=== PATIENT | male | born 1970 ===

== ENCOUNTER 2020-10-14 19:46 | Inpatient (IN) | payer BC ==
--- NOTE | 2020-10-14 19:59 | EDM.PDOC ---
ED HPI GENERAL MEDICAL PROBLEM - General Chief Complaint: General Stated Complaint: weak cough sob dizzy Time Seen by Provider: 10/14/20 19:57 - History of Present Illness INITIAL COMMENTS - FREE TEXT/NARRATIVE: 50-year-old male presents the emergency room with shortness of breath and cough. Patient states he has been coughing and short of breath for about a week. He cannot really recall when it actually got worse perhaps a few days ago but it has not been a significant change. Is not aware of any fevers. Patient is not aware of any Covid exposures she has had some sick coworkers but none of them were tested. Patient denies any nausea vomiting and he is hungry. He has an intermittent cough mostly dry nonproductive. He was seen at the walk-in clinic today and they could not get his O2 saturation to 90%. - Related Data Allergies Allergy/AdvReac Type Severity Reaction Status Date / Time No Known Allergies Allergy Verified 10/14/20 20:19 Home Meds: Home Meds . [No Known Home Meds] 10/14/20 [History] ED ROS GENERAL - Review of Systems Review Of Systems: See Below Constitutional: Reports: No Symptoms HEENT: Reports: No Symptoms Respiratory: Reports: Shortness of Breath, Cough. Denies: Wheezing Cardiovascular: Reports: No Symptoms. Denies: Chest Pain Endocrine: Reports: No Symptoms GI/Abdominal: Reports: No Symptoms : Reports: No Symptoms Musculoskeletal: Reports: No Symptoms Skin: Reports: No Symptoms Neurological: Reports: No Symptoms Psychiatric: Reports: No Symptoms Hematologic/Lymphatic: Reports: No Symptoms Immunologic: Reports: No Symptoms ED EXAM, GENERAL - Physical Exam Exam: See Below Exam Limited By: No Limitations General Appearance: Alert, No Apparent Distress Eye Exam: Bilateral Eye: Normal Inspection Ears: Normal External Exam, Normal Canal, Hearing Grossly Normal, Normal TMs Nose: Normal Inspection, Normal Mucosa, No Blood Throat/Mouth: Normal Inspection, Normal Lips, Normal Teeth, Normal Gums, Normal Oropharynx, Normal Voice, No Airway Compromise Head: Atraumatic, Normocephalic Neck: Normal Inspection, Supple, Non-Tender, Full Range of Motion. No: Lymphadenopathy (L), Lymphadenopathy (R) Respiratory/Chest: No Respiratory Distress, Lungs Clear, Normal Breath Sounds Cardiovascular: Regular Rate, Rhythm, No Edema, No Murmur GI/Abdominal: Normal Bowel Sounds, Soft, Non-Tender Back Exam: Normal Inspection. No: CVA Tenderness (L), CVA Tenderness (R) #1 Interpretation EKG Date: 10/14/20 Rhythm: Other (Sinus tachycardia) Rate (Beats/Min): 111 [place]: Normal P-Wave: Present QRS: Normal ST-T: Other (Minimal diet nondiagnostic changes most likely due to the rapid heart rate) QT: Normal Comparison: NA - No Prior EKG EKG Interpretation Comments: Abnormal EKG Course - Vital Signs Last Recorded V/S: Last Vital Signs Temp 38.2 C H 10/14/20 20:14 Pulse 117 H 10/14/20 20:14 Resp 22 H 10/14/20 20:14 BP 136/90 10/14/20 20:14 Pulse Ox 89 L 10/14/20 20:14 - Orders/Labs/Meds Orders: Active Orders 24 hr Category Date Time Status Admission Status [Patient Status] [ADT] Routine ADT 10/14/20 21:55 Active EKG Documentation Completion [RC] STAT Care 10/14/20 20:27 Active CULTURE BLOOD [BC] Stat Lab 10/14/20 20:38 Received CULTURE BLOOD [BC] Stat Lab 10/14/20 20:48 Received HEPATIC FUNCTION PANEL,HFP [CHEM] DAILY Lab 10/15/20 22:00 Ordered HEPATIC FUNCTION PANEL,HFP [CHEM] DAILY Lab 10/16/20 22:00 Ordered HEPATIC FUNCTION PANEL,HFP [CHEM] DAILY Lab 10/17/20 22:00 Ordered HEPATIC FUNCTION PANEL,[facility] [CHEM] DAILY Lab 10/18/20 22:00 Ordered HEPATIC FUNCTION PANEL,HFP [CHEM] Stat Lab 10/14/20 21:54 Ordered Lactated Ringers [Ringers, Lactated] 1,000 ml Med 10/14/20 21:30 Active IV ASDIRECTED Blood Culture x2 Reflex Set [OM.PC] Stat Oth 10/14/20 20:18 Ordered Medication Orders Lactated Ringer's (Ringers, Lactated) 1,000 mls @ 75 mls/hr IV ASDIRECTED [facility] Labs: Laboratory Tests 10/14/20 10/14/20 10/14/20 Range/Units 20:02 20:10 20:10 WBC 7.74 (4.23-9.07) K/mm3 RBC 5.23 (4.63-6.08) M/mm3 Hgb 15.9 (13.7-17.5) gm/dl Hct 45.3 (40.1-51.0) % MCV 86.6 (79.0-92.2) fl MCH 30.4 (25.7-32.2) pg MCHC 35.1 (32.2-35.5) g/dl RDW Std Deviation 49.1 H (35.1-43.9) fL Plt Count 143 L (163-337) K/mm3 MPV 11.2 (9.4-12.3) fl Neutrophils % (Manual) 81 H (40-60) % Band Neutrophils % 1 (0-10) % Lymphocytes % (Manual) 10 L (20-40) % Atypical Lymphs % 1 % Monocytes % (Manual) 7 (2-10) % Eosinophils % (Manual) 0 L (0.8-7.0) % Basophils % (Manual) 0 L (0.2-1.2) Platelet Estimate Adequate RBC Morph Comment Normal D-Dimer, Quantitative (0.19-0.50) mg/L Sodium 138 (136-145) mEq/L Potassium 4.1 (3.5-5.1) mEq/L Chloride 101 (98-107) mEq/L Carbon Dioxide 24 (21-32) mEq/L Anion Gap 17.1 H (5-15) BUN 20 H (7-18) mg/dL Creatinine 1.1 (0.7-1.3) mg/dL Est Cr Clr Drug Dosing 90.14 mL/min Estimated GFR (MDRD) > 60 (>60) mL/min BUN/Creatinine Ratio 18.2 H (14-18) Glucose 135 H (70-99) mg/dL Lactic Acid (0.4-2.0) mmol/L Calcium 8.4 L (8.5-10.1) mg/dL Ferritin (26-388) ng/ml Total Bilirubin 0.7 (0.2-1.0) mg/dL AST 92 H (15-37) U/L ALT 75 H (16-63) U/L Alkaline Phosphatase 52 (46-116) U/L Troponin I (0.00-0.056) ng/mL C-Reactive Protein 6.2 H* (<1.0) mg/dL Total Protein 7.3 (6.4-8.2) g/dl Albumin 3.0 L (3.4-5.0) g/dl Globulin 4.3 gm/dL Albumin/Globulin Ratio 0.7 L (1-2) Influenza Type A RNA Negative (NEGATIVE) Influenza Type B RNA Negative (NEGATIVE) SARS-CoV-2 RNA (SHELIA) Positive H (NEGATIVE) 10/14/20 10/14/20 10/14/20 Range/Units 20:10 20:10 20:10 WBC (4.23-9.07) K/mm3 RBC (4.63-6.08) M/mm3 Hgb (13.7-17.5) gm/dl Hct (40.1-51.0) % MCV (79.0-92.2) fl MCH (25.7-32.2) pg MCHC (32.2-35.5) g/dl RDW Std Deviation (35.1-43.9) fL Plt Count (163-337) K/mm3 MPV (9.4-12.3) fl Neutrophils % (Manual) (40-60) % Band Neutrophils % (0-10) % Lymphocytes % (Manual) (20-40) % Atypical Lymphs % % Monocytes % (Manual) (2-10) % Eosinophils % (Manual) (0.8-7.0) % Basophils % (Manual) (0.2-1.2) Platelet Estimate RBC Morph Comment D-Dimer, Quantitative 0.50 (0.19-0.50) mg/L Sodium (136-145) mEq/L Potassium (3.5-5.1) mEq/L Chloride (98-107) mEq/L Carbon Dioxide (21-32) mEq/L Anion Gap (5-15) BUN (7-18) mg/dL Creatinine (0.7-1.3) mg/dL Est Cr Clr Drug Dosing mL/min Estimated GFR (MDRD) (>60) mL/min BUN/Creatinine Ratio (14-18) Glucose (70-99) mg/dL Lactic Acid (0.4-2.0) mmol/L Calcium (8.5-10.1) mg/dL Ferritin 2618 H (26-388) ng/ml Total Bilirubin (0.2-1.0) mg/dL AST (15-37) U/L ALT (16-63) U/L Alkaline Phosphatase (46-116) U/L Troponin I 0.017 (0.00-0.056) ng/mL C-Reactive Protein (<1.0) mg/dL Total Protein (6.4-8.2) g/dl Albumin (3.4-5.0) g/dl Globulin gm/dL Albumin/Globulin Ratio (1-2) Influenza Type A RNA (NEGATIVE) Influenza Type B RNA (NEGATIVE) SARS-CoV-2 RNA (SHELIA) (NEGATIVE) 10/14/20 Range/Units 20:38 WBC (4.23-9.07) K/mm3 RBC (4.63-6.08) M/mm3 Hgb (13.7-17.5) gm/dl Hct (40.1-51.0) % MCV (79.0-92.2) fl MCH (25.7-32.2) pg MCHC (32.2-35.5) g/dl RDW Std Deviation (35.1-43.9) fL Plt Count (163-337) K/mm3 MPV (9.4-12.3) fl Neutrophils % (Manual) (40-60) % Band Neutrophils % (0-10) % Lymphocytes % (Manual) (20-40) % Atypical Lymphs % % Monocytes % (Manual) (2-10) % Eosinophils % (Manual) (0.8-7.0) % Basophils % (Manual) (0.2-1.2) Platelet Estimate RBC Morph Comment D-Dimer, Quantitative (0.19-0.50) mg/L Sodium (136-145) mEq/L Potassium (3.5-5.1) mEq/L Chloride (98-107) mEq/L Carbon Dioxide (21-32) mEq/L Anion Gap (5-15) BUN (7-18) mg/dL Creatinine (0.7-1.3) mg/dL Est Cr Clr Drug Dosing mL/min Estimated GFR (MDRD) (>60) mL/min BUN/Creatinine Ratio (14-18) Glucose (70-99) mg/dL Lactic Acid 1.3 (0.4-2.0) mmol/L Calcium (8.5-10.1) mg/dL Ferritin (26-388) ng/ml Total Bilirubin (0.2-1.0) mg/dL AST (15-37) U/L ALT (16-63) U/L Alkaline Phosphatase (46-116) U/L Troponin I (0.00-0.056) ng/mL C-Reactive Protein (<1.0) mg/dL Total Protein (6.4-8.2) g/dl Albumin (3.4-5.0) g/dl Globulin gm/dL Albumin/Globulin Ratio (1-2) Influenza Type A RNA (NEGATIVE) Influenza Type B RNA (NEGATIVE) SARS-CoV-2 RNA (SHELIA) (NEGATIVE) Meds: Medications Generic Name Dose Route Start Last Admin Trade Name Freq PRN Reason Stop Dose Admin Lactated Ringer's 1,000 mls @ 75 mls/hr 10/14/20 21:30 Ringers, Lactated IV ASDIRECTED PAUL Discontinued Medications Generic Name Dose Route Start Last Admin Trade Name Freq PRN Reason Stop Dose Admin Dexamethasone 6 mg 10/14/20 21:53 Dexamethasone 4 Mg/Ml 5 Ml Mdv IV 10/14/20 21:54 ONETIME ONE Remdesivir 200 mg/ Sodium 250 mls @ 250 mls/hr 10/14/20 21:53 Chloride IV 10/14/20 21:54 ONETIME ONE - Re-Assessments/Exams Free Text/Narrative Re-Assessment/Exam: 10/14/20 21:56 I strongly suggested Covid pneumonia with peripheral infiltrates involving most the right lung field and the lower half of the left lung field. C-reactive protein is elevated D-dimer is normal white count is 7100 no bands relative lymphopenia. Patient is requiring oxygen he is now in nearly 4 L satting around 90% sometimes dropping to 88%. The patient should be placed inpatient. Case was discussed with Dr. Walls, our hospitalist who kindly accepts the patient patient be started on remdesivir and dexamethasone. He was started on a gentle dose of fluids as Covid was suspected even though he had some early indications that he might be septic lactic acid was normal but will be followed. Departure - Departure Time of Disposition: 21:47 Disposition: Admitted As Inpatient 68 Clinical Impression: Pneumonia due to COVID-19 virus - Discharge Information Referrals: PCP,None [Primary Care Provider] - Forms: ED Department Discharge Sepsis Event Note (ED) - Focused Exam Vital Signs: Vital Signs Temp Pulse Resp BP Pulse Ox 10/14/20 20:14 38.2 C H 117 H 22 H 136/90 89 L - My Orders Last 24 Hours: My Active Orders 10/14/20 20:18 Blood Culture x2 Reflex Set [OM.PC] Stat 10/14/20 20:27 EKG Documentation Completion [RC] STAT 10/14/20 20:38 CULTURE BLOOD [BC] Stat 10/14/20 20:48 CULTURE BLOOD [BC] Stat 10/14/20 21:30 Lactated Ringers [Ringers, Lactated] 1,000 ml IV ASDIRECTED 10/14/20 21:54 HEPATIC FUNCTION PANEL,HFP [CHEM] Stat 10/14/20 21:55 Admission Status [Patient Status] [ADT] Routine 10/15/20 22:00 HEPATIC FUNCTION PANEL,HFP [CHEM] DAILY 10/16/20 22:00 HEPATIC FUNCTION PANEL,HFP [CHEM] DAILY 10/17/20 22:00 HEPATIC FUNCTION PANEL,HFP [CHEM] DAILY 10/18/20 22:00 HEPATIC FUNCTION PANEL,HFP [CHEM] DAILY - Assessment/Plan Last 24 Hours: My Active Orders 10/14/20 20:18 Blood Culture x2 Reflex Set [OM.PC] Stat 10/14/20 20:27 EKG Documentation Completion [RC] STAT 10/14/20 20:38 CULTURE BLOOD [BC] Stat 10/14/20 20:48 CULTURE BLOOD [BC] Stat 10/14/20 21:30 Lactated Ringers [Ringers, Lactated] 1,000 ml IV ASDIRECTED 10/14/20 21:54 HEPATIC FUNCTION PANEL,HFP [CHEM] Stat 10/14/20 21:55 Admission Status [Patient Status] [ADT] Routine 10/15/20 22:00 HEPATIC FUNCTION PANEL,HFP [CHEM] DAILY 10/16/20 22:00 HEPATIC FUNCTION PANEL,HFP [CHEM] DAILY 10/17/20 22:00 HEPATIC FUNCTION PANEL,HFP [CHEM] DAILY 10/18/20 22:00 HEPATIC FUNCTION PANEL,HFP [CHEM] DAILY
[2020-10-14 21:00] LABS: CORONAVIRUS COVID-19 NAA POSITIVE (NEGATIVE)
--- NOTE | 2020-10-14 21:47 | CR ---
Chest: Upright view of the chest was obtained. Heart size and mediastinum are within normal limits. Diffuse increased density is seen within both sides of the chest. Bony structures are grossly intact. Impression: 1. Increased density on both sides of the chest. Please correlate if this represents pneumonia. Please rule out Covid disease. Diagnostic code #3
[2020-10-14] MEDS ORDERED: Dexamethasone 4 MG/ML 5 ML MDV IV ONE (21:53)
[2020-10-14] MEDS ORDERED: REMDESIVIR 200 MG in Sodium Chloride 0.9% 250 ML IV ONE (21:53)
[2020-10-14] MEDS: Lactated Ringers 1,000 ML IV SCH (22:14)
--- NOTE | 2020-10-15 06:43 | PCM.HP.2 ---
H&P History of Present Illness - General Date of Service: 10/15/20 Admit Problem/Dx: Admission Diagnosis/Problem Admission Diagnosis/Problem Hypoxia Source of Information: Patient History Limitations: Reports: No Limitations - History of Present Illness Initial Comments - Free Text/Narative: The patient is a 50-year-old gentleman who had presented to the emergency department out of concern for fatigue, hypoxia and weakness. The patient reports that he has had symptoms of shortness of breath, decreased appetite and fatigue for at least the past week. The patient was tested positive for COVID- 19 in the emergency department. The patient has denied any fever at home. No loss of sense of smell or taste. He currently lives with his daughter. She has not been sick. He has no coworkers that are sick. The patient initially seen at walk-in clinic where they were unable with oxygen to get his saturations to 90%. The patient reports that he has had a cough that has been nonproductive. He has denied any pain. The patient denies any tobacco use. Onset of Symptoms: Reports: Gradual Duration of Symptoms: Reports: Week(s): Location: Reports: Chest Quality: Reports: Ache Severity: Mild Improves with: Reports: Rest, Other (Oxygen) Worsens with: Reports: Breathing Context: Reports: Activity/Exercise. Denies: Sick Contact Associated Symptoms: Reports: Cough, Shortness of Breath, Weakness. Denies: cough w sputum - Related Data Allergies/Adverse Reactions: Allergies Allergy/AdvReac Type Severity Reaction Status Date / Time No Known Allergies Allergy Verified 10/14/20 23:52 Home Medications: Home Meds . [No Known Home Meds] 10/14/20 [History] Past Medical History - Past Health History Medical/Surgical History: Denies Medical/Surgical History HEENT History: Reports: None Cardiovascular History: Reports: None Respiratory History: Reports: None Gastrointestinal History: Reports: None Genitourinary History: Reports: Renal Calculus Musculoskeletal History: Reports: None Neurological History: Reports: None Psychiatric History: Reports: None Endocrine/Metabolic History: Reports: None Hematologic History: Reports: None Immunologic History: Reports: None Oncologic (Cancer) History: Reports: None Dermatologic History: Reports: None Social & Family History - Family History Family Medical History: No Pertinent Family History - Tobacco Use Tobacco Use Status *Q: Never Tobacco User Second Hand Smoke Exposure: No - Caffeine Use Caffeine Use: Reports: Soda - Recreational Drug Use Recreational Drug Use: No - Living Situation & Occupation Living situation: Reports: ( living with daughter) Occupation: Employed H&P Review of Systems - Review of Systems: Review Of Systems: See Below General: Reports: Malaise, Weakness HEENT: Reports: No Symptoms Pulmonary: Reports: Shortness of Breath, Cough. Denies: Sputum, Hemoptysis Cardiovascular: Reports: No Symptoms, Chest Pain Gastrointestinal: Reports: No Symptoms Genitourinary: Reports: No Symptoms Musculoskeletal: Reports: No Symptoms Skin: Reports: No Symptoms Psychiatric: Reports: No Symptoms Neurological: Reports: No Symptoms Hematologic/Lymphatic: Reports: No Symptoms Immunologic: Reports: No Symptoms Exam - Exam Exam: See Below - Vital Signs Vital Signs: Last Vital Signs Temp 38.3 C H 10/14/20 22:50 Pulse 107 H 10/14/20 22:50 Resp 26 H 10/14/20 22:50 BP 136/81 10/14/20 22:50 Pulse Ox 93 L 10/14/20 23:00 Weight: 120.701 kg - Exam Quality Assessment: Supplemental Oxygen, DVT Prophylaxis General: Alert, Oriented, Cooperative HEENT: Conjunctiva Clear, EACs Clear, EOMI, Hearing Intact, Mucosa Moist & [place], Nares Patent, PERRLA Neck: Supple, Trachea Midline Lungs: Decreased Breath Sounds, Crackles, Rales Cardiovascular: Regular Rate, Regular Rhythm GI/Abdominal Exam: Normal Bowel Sounds, Soft, Non-Tender, No Distention (Male) Exam: Deferred Rectal (Males) Exam: Deferred Back Exam: Normal Inspection, Full Range of Motion Extremities: Normal Inspection, No Pedal Edema Skin: Warm, Dry, Intact Neurological: Cranial Nerves Intact, Normal Gait, Normal Speech Neuro Extensive - Mental Status: Alert, Oriented x3 Neuro Extensive - Motor, Sensory, Reflexes: CN II-XII Intact, Normal Gait Psychiatric: Alert, Normal Affect - Patient Data Lab Results Last 24 hrs: Laboratory Results - last 24 hr 10/14/20 10/14/20 10/14/20 Range/Units 20:02 20:10 20:10 WBC 7.74 (4.23-9.07) K/mm3 RBC 5.23 (4.63-6.08) M/mm3 Hgb 15.9 (13.7-17.5) gm/dl Hct 45.3 (40.1-51.0) % MCV 86.6 (79.0-92.2) fl MCH 30.4 (25.7-32.2) pg MCHC 35.1 (32.2-35.5) g/dl RDW Std Deviation 49.1 H (35.1-43.9) fL Plt Count 143 L (163-337) K/mm3 MPV 11.2 (9.4-12.3) fl Neut % (Auto) (34.0-67.9) % Lymph % (Auto) (21.8-53.1) % [place] % (Auto) (5.3-12.2) % Eos % (Auto) (0.8-7.0) Baso % (Auto) (0.1-1.2) % Neut # (Auto) (1.78-5.38) K/mm3 Lymph # (Auto) (1.32-3.57) K/mm3 [place] # (Auto) (0.30-0.82) K/mm3 Eos # (Auto) (0.04-0.54) K/mm3 Baso # (Auto) (0.01-0.08) K/mm3 Neutrophils % (Manual) 81 H (40-60) % Band Neutrophils % 1 (0-10) % Lymphocytes % (Manual) 10 L (20-40) % Atypical Lymphs % 1 % Monocytes % (Manual) 7 (2-10) % Eosinophils % (Manual) 0 L (0.8-7.0) % Basophils % (Manual) 0 L (0.2-1.2) Platelet Estimate Adequate RBC Morph Comment Normal D-Dimer, Quantitative (0.19-0.50) mg/L Sodium 138 (136-145) mEq/L Potassium 4.1 (3.5-5.1) mEq/L Chloride 101 (98-107) mEq/L Carbon Dioxide 24 (21-32) mEq/L Anion Gap 17.1 H (5-15) BUN 20 H (7-18) mg/dL Creatinine 1.1 (0.7-1.3) mg/dL Est Cr Clr Drug Dosing 90.14 mL/min Estimated GFR (MDRD) > 60 (>60) mL/min BUN/Creatinine Ratio 18.2 H (14-18) Glucose 135 H (70-99) mg/dL Lactic Acid (0.4-2.0) mmol/L Calcium 8.4 L (8.5-10.1) mg/dL Ferritin (26-388) ng/ml Total Bilirubin 0.7 (0.2-1.0) mg/dL Direct Bilirubin (0.0-0.2) mg/dl Indirect Bilirubin AST 92 H (15-37) U/L ALT 75 H (16-63) U/L Alkaline Phosphatase 52 (46-116) U/L Troponin I (0.00-0.056) ng/mL C-Reactive Protein 6.2 H* (<1.0) mg/dL Total Protein 7.3 (6.4-8.2) g/dl Albumin 3.0 L (3.4-5.0) g/dl Globulin 4.3 gm/dL Albumin/Globulin Ratio 0.7 L (1-2) Influenza Type A RNA Negative (NEGATIVE) Influenza Type B RNA Negative (NEGATIVE) SARS-CoV-2 RNA (SHELIA) Positive H (NEGATIVE) 10/14/20 10/14/20 10/14/20 Range/Units 20:10 20:10 20:10 WBC (4.23-9.07) K/mm3 RBC (4.63-6.08) M/mm3 Hgb (13.7-17.5) gm/dl Hct (40.1-51.0) % MCV (79.0-92.2) fl MCH (25.7-32.2) pg MCHC (32.2-35.5) g/dl RDW Std Deviation (35.1-43.9) fL Plt Count (163-337) K/mm3 MPV (9.4-12.3) fl Neut % (Auto) (34.0-67.9) % Lymph % (Auto) (21.8-53.1) % [place] % (Auto) (5.3-12.2) % Eos % (Auto) (0.8-7.0) Baso % (Auto) (0.1-1.2) % Neut # (Auto) (1.78-5.38) K/mm3 Lymph # (Auto) (1.32-3.57) K/mm3 [place] # (Auto) (0.30-0.82) K/mm3 Eos # (Auto) (0.04-0.54) K/mm3 Baso # (Auto) (0.01-0.08) K/mm3 Neutrophils % (Manual) (40-60) % Band Neutrophils % (0-10) % Lymphocytes % (Manual) (20-40) % Atypical Lymphs % % Monocytes % (Manual) (2-10) % Eosinophils % (Manual) (0.8-7.0) % Basophils % (Manual) (0.2-1.2) Platelet Estimate RBC Morph Comment D-Dimer, Quantitative 0.50 (0.19-0.50) mg/L Sodium (136-145) mEq/L Potassium (3.5-5.1) mEq/L Chloride (98-107) mEq/L Carbon Dioxide (21-32) mEq/L Anion Gap (5-15) BUN (7-18) mg/dL Creatinine (0.7-1.3) mg/dL Est Cr Clr Drug Dosing mL/min Estimated GFR (MDRD) (>60) mL/min BUN/Creatinine Ratio (14-18) Glucose (70-99) mg/dL Lactic Acid (0.4-2.0) mmol/L Calcium (8.5-10.1) mg/dL Ferritin 2618 H (26-388) ng/ml Total Bilirubin (0.2-1.0) mg/dL Direct Bilirubin (0.0-0.2) mg/dl Indirect Bilirubin AST (15-37) U/L ALT (16-63) U/L Alkaline Phosphatase (46-116) U/L Troponin I 0.017 (0.00-0.056) ng/mL C-Reactive Protein (<1.0) mg/dL Total Protein (6.4-8.2) g/dl Albumin (3.4-5.0) g/dl Globulin gm/dL Albumin/Globulin Ratio (1-2) Influenza Type A RNA (NEGATIVE) Influenza Type B RNA (NEGATIVE) SARS-CoV-2 RNA (SHELIA) (NEGATIVE) 10/14/20 10/15/20 10/15/20 Range/Units 20:38 05:18 05:18 WBC 7.23 (4.23-9.07) K/mm3 RBC 5.03 (4.63-6.08) M/mm3 Hgb 15.1 (13.7-17.5) gm/dl Hct 44.5 (40.1-51.0) % MCV 88.5 (79.0-92.2) fl MCH 30.0 (25.7-32.2) pg MCHC 33.9 (32.2-35.5) g/dl RDW Std Deviation 50.9 H (35.1-43.9) fL Plt Count 141 L (163-337) K/mm3 MPV 11.1 (9.4-12.3) fl Neut % (Auto) 80.9 H (34.0-67.9) % Lymph % (Auto) 9.5 L (21.8-53.1) % [place] % (Auto) 9.4 (5.3-12.2) % Eos % (Auto) 0 L (0.8-7.0) Baso % (Auto) 0.1 (0.1-1.2) % Neut # (Auto) 5.84 H (1.78-5.38) K/mm3 Lymph # (Auto) 0.69 L (1.32-3.57) K/mm3 [place] # (Auto) 0.68 (0.30-0.82) K/mm3 Eos # (Auto) 0.00 L (0.04-0.54) K/mm3 Baso # (Auto) 0.01 (0.01-0.08) K/mm3 Neutrophils % (Manual) (40-60) % Band Neutrophils % (0-10) % Lymphocytes % (Manual) (20-40) % Atypical Lymphs % % Monocytes % (Manual) (2-10) % Eosinophils % (Manual) (0.8-7.0) % Basophils % (Manual) (0.2-1.2) Platelet Estimate RBC Morph Comment D-Dimer, Quantitative (0.19-0.50) mg/L Sodium 137 (136-145) mEq/L Potassium 4.9 (3.5-5.1) mEq/L Chloride 102 (98-107) mEq/L Carbon Dioxide 28 (21-32) mEq/L Anion Gap 11.9 (5-15) BUN 17 (7-18) mg/dL Creatinine 1.3 (0.7-1.3) mg/dL Est Cr Clr Drug Dosing 76.27 mL/min Estimated GFR (MDRD) 59 (>60) mL/min BUN/Creatinine Ratio 13.1 L (14-18) Glucose 156 H (70-99) mg/dL Lactic Acid 1.3 (0.4-2.0) mmol/L Calcium 8.3 L (8.5-10.1) mg/dL Ferritin (26-388) ng/ml Total Bilirubin 0.6 (0.2-1.0) mg/dL Direct Bilirubin 0.20 (0.0-0.2) mg/dl Indirect Bilirubin 0.40 AST 87 H (15-37) U/L ALT 74 H (16-63) U/L Alkaline Phosphatase 47 (46-116) U/L Troponin I (0.00-0.056) ng/mL C-Reactive Protein 7.2 H* (<1.0) mg/dL Total Protein 7.0 (6.4-8.2) g/dl Albumin 2.7 L (3.4-5.0) g/dl Globulin 4.3 gm/dL Albumin/Globulin Ratio 0.6 L (1-2) Influenza Type A RNA (NEGATIVE) Influenza Type B RNA (NEGATIVE) SARS-CoV-2 RNA (SHELIA) (NEGATIVE) Result Diagrams: 10/15/20 05:18 10/15/20 05:18 Sepsis Event Note - Evaluation Sepsis Screening Result: Sepsis Risk - Focused Exam Vital Signs: Vital Signs Temp Temp Pulse Pulse Resp BP BP 10/14/20 23:00 10/14/20 22:50 38.3 C H 107 H 26 H 136/81 10/14/20 22:22 20 129/86 10/14/20 20:14 38.2 C H 117 H 22 H 136/90 Pulse Ox Pulse Ox 10/14/20 23:00 93 L 10/14/20 22:50 90 L 10/14/20 22:22 89 L 10/14/20 20:14 89 L - Problem List (1) Acute respiratory failure due to COVID-19 SNOMED Code(s): 851754551 ICD Code: U07.1 - COVID-19; J96.00 - ACUTE RESPIRATORY FAILURE, UNSP W HYPOXIA OR HYPERCAPNIA Status: Acute Priority: High Current Visit: Yes (2) Pneumonia due to COVID-19 virus SNOMED Code(s): 603777395592668343 ICD Code: U07.1 - COVID-19; J12.82 - PNEUMONIA DUE TO CORONAVIRUS DISEASE 2019 Status: Acute Priority: High Current Visit: Yes Problem List Initiated/Reviewed/Updated: Yes Orders Last 24hrs: Active Orders 24 hr Category Date Time Status Admission Status [Patient Status] [ADT] Routine ADT 10/14/20 21:55 Active Oxygen Therapy Adult [Oxygen Therapy] [RC] ASDIRECTED Care 10/14/20 22:40 Active Regular Diet [DIET] Diet 10/15/20 Breakfast Active CBC WITH AUTO DIFF [HEME] Routine Lab 10/15/20 05:18 Results CULTURE BLOOD [BC] Stat Lab 10/14/20 20:38 Received CULTURE BLOOD [BC] Stat Lab 10/14/20 20:48 Received HEPATIC FUNCTION PANEL,HFP [CHEM] DAILY Lab 10/15/20 05:18 Received HEPATIC FUNCTION PANEL,HFP [CHEM] DAILY Lab 10/16/20 22:00 Ordered HEPATIC FUNCTION PANEL,HFP [CHEM] DAILY Lab 10/17/20 22:00 Ordered HEPATIC FUNCTION PANEL,HFP [CHEM] DAILY Lab 10/18/20 22:00 Ordered Lactated Ringers [Ringers, Lactated] 1,000 ml Med 10/14/20 21:30 Active IV ASDIRECTED Blood Culture x2 Reflex Set [OM.PC] Stat Oth 10/14/20 20:18 Ordered Pulse Oximetry Continuous Monitoring [OM.PC] Routine Oth 10/14/20 22:40 Active Resuscitation Status Routine Resus Stat 10/15/20 00:38 Ordered Medication Orders Lactated Ringer's (Ringers, Lactated) 1,000 mls @ 75 mls/hr IV ASDIRECTED [facility] Last Admin: 10/14/20 22:14 Dose: 75 mls/hr Documented by: WILBERT Assessment/Plan Comment:: The patient is an otherwise healthy 50-year-old gentleman who had presented to the emergency department and was subsequently admitted as an inpatient secondary to Covid pneumonia. The patient has been started on remdesivir 200 mg IV initially followed by 100 mg IV for 4 days. I have also started the patient on 9 more days of dexamethasone 6 mg p.o. daily. The patient will also have a azithromycin at 500 mg IV daily. The patient will also be kept on oxygen support to help keep his saturations around 92%. Patient will be kept on telemetry. I have ordered repeat laboratory studies for the morning. The patient will have regular diet as tolerated. He has been encouraged to continue to ambulate. I have also ordered a repeat chest x-ray for Saturday, October 20, 2020 . The patient will also be anticoagulated with Lovenox 40 mg subcutaneously daily. He also be fluid resuscitated with the use of lactated Ringer's. The patient should be appropriate for discharge after fourth dose of his remdesivir depending upon his oxygen demands. - Mortality Measure Prognosis:: Good
[2020-10-15] MEDS ORDERED: Temazepam 7.5 MG Cap PO PRN (06:51)
[2020-10-15] MEDS ORDERED: Ondansetron 4 MG Tab.DIS PO PRN (06:51)
[2020-10-15] MEDS ORDERED: Acetaminophen 325 MG Tab PO PRN (06:51)
[2020-10-15] MEDS ORDERED: oxyCODONE 5 MG Tab PO PRN (06:51)
[2020-10-15] MEDS: Azithromycin 500 MG in Sodium Chloride 0.9% 250 ML IV SCH (07:45)
[2020-10-15] MEDS: Enoxaparin 40 MG/0.4 ML Syringe SUBCUT SCH (09:51)
[2020-10-15] MEDS: Dexamethasone 4 MG Tab PO SCH (09:51)
[2020-10-15] MEDS: Lactated Ringers 1,000 ML IV SCH (11:48)
[2020-10-15] MEDS: REMDESIVIR 100 MG in Sodium Chloride 0.9% 100 ML IV SCH (20:40)
[2020-10-16] MEDS: Lactated Ringers 1,000 ML IV SCH ×2 (01:59→15:31)
[2020-10-16] MEDS: Azithromycin 500 MG in Sodium Chloride 0.9% 250 ML IV SCH (06:56)
--- NOTE | 2020-10-16 08:38 | PCM.PN ---
- General Info Date of Service: 10/16/20 Admission Dx/Problem (Free Text): Admission Diagnosis/Problem Admission Diagnosis/Problem Hypoxia Subjective Update: The patient is a 50-year-old gentleman who had been admitted to acute hospitalization secondary to hypoxia associated with COVID-19. The patient says today that he is doing better. The patient says that he is feeling fatigued. He still has some shortness of breath. The patient says that his cough is impr little. He has been tolerating his diet. Functional Status: Reports: Pain Controlled, Tolerating Diet - Review of Systems General: Reports: Weakness HEENT: Reports: No Symptoms Pulmonary: Reports: Shortness of Breath, Cough Cardiovascular: Reports: No Symptoms Gastrointestinal: Reports: No Symptoms Genitourinary: Reports: No Symptoms Musculoskeletal: Reports: No Symptoms Skin: Reports: No Symptoms Neurological: Reports: No Symptoms Psychiatric: Reports: No Symptoms - Patient Data Vitals - Most Recent: Last Vital Signs Temp 36.6 C 10/16/20 07:31 Pulse 82 10/16/20 07:31 Resp 20 10/16/20 07:31 BP 117/70 10/16/20 07:31 Pulse Ox 89 L 10/16/20 08:26 Weight - Most Recent: 120.247 kg I&O - Last 24 Hours: Intake & Output 10/15/20 10/16/20 10/16/20 22:59 06:59 14:59 Intake Total 1605 1700 Output Total 1200 900 Balance 405 800 Lab Results Last 24 Hours: Laboratory Results - last 24 hr 10/16/20 10/16/20 10/16/20 Range/Units 06:19 06:19 06:19 WBC 9.91 H (4.23-9.07) K/mm3 RBC 4.84 (4.63-6.08) M/mm3 Hgb 14.5 (13.7-17.5) gm/dl Hct 42.8 (40.1-51.0) % MCV 88.4 (79.0-92.2) fl MCH 30.0 (25.7-32.2) pg MCHC 33.9 (32.2-35.5) g/dl RDW Std Deviation 49.7 H (35.1-43.9) fL Plt Count 181 (163-337) K/mm3 MPV 11.0 (9.4-12.3) fl Neut % (Auto) 79.9 H (34.0-67.9) % Lymph % (Auto) 9.8 L (21.8-53.1) % [place] % (Auto) 9.9 (5.3-12.2) % Eos % (Auto) 0 L (0.8-7.0) Baso % (Auto) 0.2 (0.1-1.2) % Neut # (Auto) 7.92 H (1.78-5.38) K/mm3 Lymph # (Auto) 0.97 L (1.32-3.57) K/mm3 [place] # (Auto) 0.98 H (0.30-0.82) K/mm3 Eos # (Auto) 0.00 L (0.04-0.54) K/mm3 Baso # (Auto) 0.02 (0.01-0.08) K/mm3 Manual Slide Review Abnormal smear Sodium 138 (136-145) mEq/L Potassium 4.4 (3.5-5.1) mEq/L Chloride 104 (98-107) mEq/L Carbon Dioxide 26 (21-32) mEq/L Anion Gap 12.4 (5-15) BUN 19 H (7-18) mg/dL Creatinine 1.0 (0.7-1.3) mg/dL Est Cr Clr Drug Dosing 99.16 mL/min Estimated GFR (MDRD) > 60 (>60) mL/min BUN/Creatinine Ratio 19.0 H (14-18) Glucose 145 H (70-99) mg/dL Calcium 8.3 L (8.5-10.1) mg/dL Magnesium 2.3 (1.8-2.4) mg/dL Total Bilirubin 0.6 (0.2-1.0) mg/dL Direct Bilirubin 0.20 (0.0-0.2) mg/dl AST 77 H (15-37) U/L ALT 75 H (16-63) U/L Alkaline Phosphatase 41 L (46-116) U/L C-Reactive Protein 4.8 H* (<1.0) mg/dL Total Protein 6.6 (6.4-8.2) g/dl Albumin 2.6 L (3.4-5.0) g/dl Globulin 4.0 gm/dL Albumin/Globulin Ratio 0.7 L (1-2) Bob Results Last 24 Hours: Microbiology 10/14/20 20:38 Aerobic Blood Culture - Preliminary Blood - Venous NO GROWTH AFTER 1 DAY Anaerobic Blood Culture - Preliminary NO GROWTH AFTER 1 DAY 10/14/20 20:48 Aerobic Blood Culture - Preliminary Blood - Venous - Lab Draw NO GROWTH AFTER 1 DAY Anaerobic Blood Culture - Preliminary NO GROWTH AFTER 1 DAY Med Orders - Current: Current Medications Acetaminophen (Acetaminophen 325 Mg Tab) 650 mg PO Q4H PRN PRN Reason: Pain (Mild 1-3)/fever Dexamethasone (Dexamethasone 4 Mg Tab) 6 mg PO DAILY [facility] Last Admin: 10/15/20 09:51 Dose: 6 mg Documented by: Enoxaparin Sodium (Enoxaparin 40 Mg/0.4 Ml Syringe) 40 mg SUBCUT DAILY [facility] Last Admin: 10/15/20 09:51 Dose: 40 mg Documented by: Lactated Ringer's (Ringers, Lactated) 1,000 mls @ 75 mls/hr IV ASDIRECTED [facility] Last Admin: 10/16/20 01:59 Dose: 75 mls/hr Documented by: Remdesivir 100 mg/ Sodium (Chloride) 100 mls @ 100 mls/hr IV Q24H [facility] Stop: 10/18/20 21:59 Last Admin: 10/15/20 20:40 Dose: 100 mls/hr Documented by: Azithromycin 500 mg/ Sodium (Chloride) 250 mls @ 250 mls/hr IV Q24H [facility] Last Admin: 10/16/20 06:56 Dose: 250 mls/hr Documented by: Ondansetron HCl (Ondansetron 4 Mg Tab.Dis) 4 mg PO Q4H PRN PRN Reason: nausea, able to take PO Oxycodone HCl (Oxycodone 5 Mg Tab) 5 mg PO Q4H PRN PRN Reason: Pain (moderate 4-6) Temazepam (Temazepam 7.5 Mg Cap) 7.5 mg PO BEDTIME PRN PRN Reason: Sleep Discontinued Medications Dexamethasone (Dexamethasone 4 Mg/Ml 5 Ml Mdv) 6 mg IV ONETIME ONE Stop: 10/14/20 21:54 Last Admin: 10/14/20 22:14 Dose: 6 mg Documented by: Remdesivir 200 mg/ Sodium (Chloride) 250 mls @ 250 mls/hr IV ONETIME ONE Stop: 10/14/20 21:54 Last Admin: 10/14/20 22:14 Dose: 250 mls/hr Documented by: - Exam Quality Assessment: Supplemental Oxygen, DVT Prophylaxis General: Alert, Oriented, Cooperative HEENT: Pupils Equal, Pupils Reactive Neck: Supple, Trachea Midline Lungs: Normal Respiratory Effort, Rales (Bibasilar) Cardiovascular: Regular Rate, Regular Rhythm GI/Abdominal Exam: Normal Bowel Sounds, Soft, Non-Tender, No Distention (Male) Exam: Deferred Back Exam: Normal Inspection, Full Range of Motion Extremities: Normal Inspection, No Pedal Edema Skin: Warm, Dry, Intact Neurological: No New Focal Deficit, Normal Gait, Normal Speech Psy/Mental Status: Alert, Normal Affect, Normal Mood - Patient Data Lab Results Last 24 hrs: Laboratory Results - last 24 hr 10/16/20 10/16/20 10/16/20 Range/Units 06:19 06:19 06:19 WBC 9.91 H (4.23-9.07) K/mm3 RBC 4.84 (4.63-6.08) M/mm3 Hgb 14.5 (13.7-17.5) gm/dl Hct 42.8 (40.1-51.0) % MCV 88.4 (79.0-92.2) fl MCH 30.0 (25.7-32.2) pg MCHC 33.9 (32.2-35.5) g/dl RDW Std Deviation 49.7 H (35.1-43.9) fL Plt Count 181 (163-337) K/mm3 MPV 11.0 (9.4-12.3) fl Neut % (Auto) 79.9 H (34.0-67.9) % Lymph % (Auto) 9.8 L (21.8-53.1) % [place] % (Auto) 9.9 (5.3-12.2) % Eos % (Auto) 0 L (0.8-7.0) Baso % (Auto) 0.2 (0.1-1.2) % Neut # (Auto) 7.92 H (1.78-5.38) K/mm3 Lymph # (Auto) 0.97 L (1.32-3.57) K/mm3 [place] # (Auto) 0.98 H (0.30-0.82) K/mm3 Eos # (Auto) 0.00 L (0.04-0.54) K/mm3 Baso # (Auto) 0.02 (0.01-0.08) K/mm3 Manual Slide Review Abnormal smear Sodium 138 (136-145) mEq/L Potassium 4.4 (3.5-5.1) mEq/L Chloride 104 (98-107) mEq/L Carbon Dioxide 26 (21-32) mEq/L Anion Gap 12.4 (5-15) BUN 19 H (7-18) mg/dL Creatinine 1.0 (0.7-1.3) mg/dL Est Cr Clr Drug Dosing 99.16 mL/min Estimated GFR (MDRD) > 60 (>60) mL/min BUN/Creatinine Ratio 19.0 H (14-18) Glucose 145 H (70-99) mg/dL Calcium 8.3 L (8.5-10.1) mg/dL Magnesium 2.3 (1.8-2.4) mg/dL Total Bilirubin 0.6 (0.2-1.0) mg/dL Direct Bilirubin 0.20 (0.0-0.2) mg/dl AST 77 H (15-37) U/L ALT 75 H (16-63) U/L Alkaline Phosphatase 41 L (46-116) U/L C-Reactive Protein 4.8 H* (<1.0) mg/dL Total Protein 6.6 (6.4-8.2) g/dl Albumin 2.6 L (3.4-5.0) g/dl Globulin 4.0 gm/dL Albumin/Globulin Ratio 0.7 L (1-2) Result Diagrams: 10/16/20 06:19 10/16/20 06:19 Bob Results Last 24 hrs: Microbiology 10/14/20 20:38 Aerobic Blood Culture - Preliminary Blood - Venous NO GROWTH AFTER 1 DAY Anaerobic Blood Culture - Preliminary NO GROWTH AFTER 1 DAY 10/14/20 20:48 Aerobic Blood Culture - Preliminary Blood - Venous - Lab Draw NO GROWTH AFTER 1 DAY Anaerobic Blood Culture - Preliminary NO GROWTH AFTER 1 DAY Sepsis Event Note - Evaluation Sepsis Screening Result: No Definite Risk - Focused Exam Vital Signs: Vital Signs Temp Temp Pulse Resp BP BP Pulse Ox 10/16/20 08:26 10/16/20 07:31 36.6 C 82 20 117/70 92 L 10/16/20 06:53 36.9 C 75 22 H 105/75 89 L 10/16/20 02:02 75 90 L 10/16/20 01:15 36.8 C 74 20 122/76 93 L 10/15/20 20:39 85 91 L Pulse Ox 10/16/20 08:26 89 L 10/16/20 07:31 10/16/20 06:53 10/16/20 02:02 10/16/20 01:15 10/15/20 20:39 - Problem List & Annotations (1) Acute respiratory failure due to COVID-19 SNOMED Code(s): 989891714 Code(s): U07.1 - COVID-19; J96.00 - ACUTE RESPIRATORY FAILURE, UNSP W HYPOXIA OR HYPERCAPNIA Status: Acute Priority: High Current Visit: Yes (2) Pneumonia due to COVID-19 virus SNOMED Code(s): 464888507478496453 Code(s): U07.1 - COVID-19; J12.82 - PNEUMONIA DUE TO CORONAVIRUS DISEASE 2019 Status: Acute Priority: High Current Visit: Yes - Problem List Review Problem List Initiated/Reviewed/Updated: Yes - My Orders Last 24 Hours: My Active Orders 10/15/20 09:00 Enoxaparin [Lovenox] 40 mg SUBCUT DAILY dexAMETHasone 6 mg PO DAILY 10/15/20 21:00 Remdesivir 100 mg Sodium Chloride 0.9% [Normal Saline] 100 ml IV Q24H 10/16/20 01:12 EKG 12 Lead [EK] Stat 10/17/20 05:00 BILIRUBIN DIRECT [CHEM] DAILY COMPREHENSIVE METABOLIC PN,CMP [CHEM] DAILY 10/17/20 05:11 Chest 1V Frontal [CR] AM 10/18/20 05:00 BILIRUBIN DIRECT [CHEM] DAILY COMPREHENSIVE METABOLIC PN,CMP [CHEM] DAILY - Plan Plan:: The patient is an otherwise healthy 50-year-old gentleman who had presented to the emergency department and was subsequently admitted as an inpatient secondary to Covid pneumonia. The patient has been started on remdesivir 200 mg IV initially followed by 100 mg IV for 4 days. I have also started the patient on 9 more days of dexamethasone 6 mg p.o. daily. The patient will also have a azithromycin at 500 mg IV daily. The patient will also be kept on oxygen support to help keep his saturations around 92%. Patient will be kept on telemetry. I have ordered repeat laboratory studies for the morning. The patient will have regular diet as tolerated. He has been encouraged to continue to ambulate. I have also ordered a repeat chest x-ray for Saturday, October 20, 2020. The patient will also be anticoagulated with Lovenox 40 mg subcutaneously daily. He also be fluid resuscitated with the use of lactated Ringer's. The patient should be appropriate for discharge after fourth dose of his remdesivir depending upon his oxygen demands. 10/16/2020 The patient was admitted secondary to COVID-19 and hypoxia. His oxygen will be continued to keep his saturations around 92%. The patient will be kept on telemetry. We will continue his diet as tolerated. I have ordered repeat laboratory studies for tomorrow. The patient would likely be appropriate for discharge in 1 to 2 days. The patient has mild elevations of his ALT and AST and these have improved from admission. I have ordered repeat comprehensive metabolic panel to ensure that these are trending downward. The patient will also have a repeat C-reactive protein. The patient should be appropriate for discharge once completion of his remdesivir.
[2020-10-16] MEDS: Dexamethasone 4 MG Tab PO SCH (09:39)
[2020-10-16] MEDS: Enoxaparin 40 MG/0.4 ML Syringe SUBCUT SCH (09:39)
[2020-10-16] MEDS: REMDESIVIR 100 MG in Sodium Chloride 0.9% 100 ML IV SCH (20:22)
[2020-10-17] MEDS: Lactated Ringers 1,000 ML IV SCH ×2 (05:04→19:50)
[2020-10-17] MEDS: Azithromycin 500 MG in Sodium Chloride 0.9% 250 ML IV SCH (07:18)
[2020-10-17] MEDS: Enoxaparin 40 MG/0.4 ML Syringe SUBCUT SCH (08:27)
[2020-10-17] MEDS: Dexamethasone 4 MG Tab PO SCH (08:27)
--- NOTE | 2020-10-17 09:30 | CR ---
Chest: Portable view of the chest was obtained. Comparison: Prior chest x-ray at 10/14/20. Patchy areas of increased density are seen on both sides of the chest. Findings have slightly increased in prominence on the right side and appear to be minimally increased within the left upper lung. Other findings are stable. Heart size and mediastinum are within normal limits for portable technique. Bony structures are grossly intact. Impression: 1. Patchy areas of increased density on both sides of the chest compatible with Covid 19 pneumonia. 2. Findings have slightly worsened from previous exam. Diagnostic code #3
--- NOTE | 2020-10-17 10:36 | PCM.PN ---
- General Info Date of Service: 10/17/20 Admission Dx/Problem (Free Text): Admission Diagnosis/Problem Admission Diagnosis/Problem Hypoxia, COVID-19 PNA Subjective Update: The patient is a 50-year-old gentleman who had been admitted to acute hospitalization on October 14, 2020 secondary to Covid pneumonia. Today the patient says that he is feeling a little bit better. He is still short of breath. The patient has been tolerating his diet. The patient has denied any pain. He has been coughing. Functional Status: Reports: Pain Controlled, Tolerating Diet - Review of Systems General: Reports: Weakness, Fatigue HEENT: Reports: No Symptoms Pulmonary: Reports: Shortness of Breath Cardiovascular: Reports: No Symptoms Gastrointestinal: Reports: No Symptoms Genitourinary: Reports: No Symptoms Musculoskeletal: Reports: No Symptoms Skin: Reports: No Symptoms Neurological: Reports: No Symptoms Psychiatric: Reports: No Symptoms - Patient Data Vitals - Most Recent: Last Vital Signs Temp 36.8 C 10/17/20 07:25 Pulse 70 10/17/20 04:56 Resp 20 10/17/20 07:25 BP 118/80 10/17/20 07:25 Pulse Ox 96 10/17/20 08:37 Weight - Most Recent: 121.018 kg I&O - Last 24 Hours: Intake & Output 10/16/20 10/17/20 10/17/20 22:59 06:59 14:59 Intake Total 2450 2000 Output Total 775 2000 Balance 1675 0 Lab Results Last 24 Hours: Laboratory Results - last 24 hr 10/17/20 10/17/20 10/17/20 Range/Units 07:18 07:18 07:18 WBC 11.17 H (4.23-9.07) K/mm3 RBC 4.87 (4.63-6.08) M/mm3 Hgb 14.6 (13.7-17.5) gm/dl Hct 43.4 (40.1-51.0) % MCV 89.1 (79.0-92.2) fl MCH 30.0 (25.7-32.2) pg MCHC 33.6 (32.2-35.5) g/dl RDW Std Deviation 50.3 H (35.1-43.9) fL Plt Count 217 (163-337) K/mm3 MPV 10.7 (9.4-12.3) fl Neut % (Auto) 82.2 H (34.0-67.9) % Lymph % (Auto) 8.4 L (21.8-53.1) % Mcintosh % (Auto) 8.8 (5.3-12.2) % Eos % (Auto) 0 L (0.8-7.0) Baso % (Auto) 0.4 (0.1-1.2) % Neut # (Auto) 9.19 H (1.78-5.38) K/mm3 Lymph # (Auto) 0.94 L (1.32-3.57) K/mm3 Mcintosh # (Auto) 0.98 H (0.30-0.82) K/mm3 Eos # (Auto) 0.00 L (0.04-0.54) K/mm3 Baso # (Auto) 0.04 (0.01-0.08) K/mm3 Manual Slide Review Abnormal smear Sodium 140 (136-145) mEq/L Potassium 4.4 (3.5-5.1) mEq/L Chloride 105 (98-107) mEq/L Carbon Dioxide 30 (21-32) mEq/L Anion Gap 9.4 (5-15) BUN 21 H (7-18) mg/dL Creatinine 1.0 (0.7-1.3) mg/dL Est Cr Clr Drug Dosing 99.16 mL/min Estimated GFR (MDRD) > 60 (>60) mL/min BUN/Creatinine Ratio 21.0 H (14-18) Glucose 124 H (70-99) mg/dL Calcium 8.1 L (8.5-10.1) mg/dL Magnesium 2.2 (1.8-2.4) mg/dL Total Bilirubin 0.7 (0.2-1.0) mg/dL Direct Bilirubin 0.20 (0.0-0.2) mg/dl AST 68 H (15-37) U/L ALT 74 H (16-63) U/L Alkaline Phosphatase 45 L (46-116) U/L C-Reactive Protein 2.2 H* (<1.0) mg/dL Total Protein 6.5 (6.4-8.2) g/dl Albumin 2.5 L (3.4-5.0) g/dl Globulin 4.0 gm/dL Albumin/Globulin Ratio 0.6 L (1-2) Bob Results Last 24 Hours: Microbiology 10/14/20 20:38 Aerobic Blood Culture - Preliminary Blood - Venous NO GROWTH AFTER 2 DAYS Anaerobic Blood Culture - Preliminary NO GROWTH AFTER 2 DAYS 10/14/20 20:48 Aerobic Blood Culture - Preliminary Blood - Venous - Lab Draw NO GROWTH AFTER 2 DAYS Anaerobic Blood Culture - Preliminary NO GROWTH AFTER 2 DAYS Med Orders - Current: Current Medications Acetaminophen (Acetaminophen 325 Mg Tab) 650 mg PO Q4H PRN PRN Reason: Pain (Mild 1-3)/fever Dexamethasone (Dexamethasone 4 Mg Tab) 6 mg PO DAILY [facility] Last Admin: 10/17/20 08:27 Dose: 6 mg Documented by: Enoxaparin Sodium (Enoxaparin 40 Mg/0.4 Ml Syringe) 40 mg SUBCUT DAILY [facility] Last Admin: 10/17/20 08:27 Dose: 40 mg Documented by: Lactated Ringer's (Ringers, Lactated) 1,000 mls @ 75 mls/hr IV ASDIRECTED [facility] Last Admin: 10/17/20 05:04 Dose: 75 mls/hr Documented by: Remdesivir 100 mg/ Sodium (Chloride) 100 mls @ 100 mls/hr IV Q24H [facility] Stop: 10/18/20 21:59 Last Admin: 10/16/20 20:22 Dose: 100 mls/hr Documented by: Azithromycin 500 mg/ Sodium (Chloride) 250 mls @ 250 mls/hr IV Q24H [facility] Last Admin: 10/17/20 07:18 Dose: 250 mls/hr Documented by: Ondansetron HCl (Ondansetron 4 Mg Tab.Dis) 4 mg PO Q4H PRN PRN Reason: nausea, able to take PO Oxycodone HCl (Oxycodone 5 Mg Tab) 5 mg PO Q4H PRN PRN Reason: Pain (moderate 4-6) Temazepam (Temazepam 7.5 Mg Cap) 7.5 mg PO BEDTIME PRN PRN Reason: Sleep Discontinued Medications Dexamethasone (Dexamethasone 4 Mg/Ml 5 Ml Mdv) 6 mg IV ONETIME ONE Stop: 10/14/20 21:54 Last Admin: 10/14/20 22:14 Dose: 6 mg Documented by: Remdesivir 200 mg/ Sodium (Chloride) 250 mls @ 250 mls/hr IV ONETIME ONE Stop: 10/14/20 21:54 Last Admin: 10/14/20 22:14 Dose: 250 mls/hr Documented by: - Exam Quality Assessment: Supplemental Oxygen, DVT Prophylaxis General: Alert, Oriented, Cooperative, No Acute Distress HEENT: Pupils Equal, Pupils Reactive, EOMI, Mucous Membr. Moist/[place]. No: Scleral Icterus Neck: Supple, Trachea Midline Lungs: Normal Respiratory Effort, Crackles, Rales Cardiovascular: Regular Rate, Regular Rhythm, No Murmurs GI/Abdominal Exam: Normal Bowel Sounds, Soft, Non-Tender, No Distention (Male) Exam: Deferred Back Exam: Normal Inspection, Full Range of Motion Extremities: Normal Inspection, No Pedal Edema Skin: Warm, Dry, Intact Neurological: No New Focal Deficit, Normal Speech Psy/Mental Status: Alert, Normal Affect - Patient Data Lab Results Last 24 hrs: Laboratory Results - last 24 hr 10/17/20 10/17/20 10/17/20 Range/Units 07:18 07:18 07:18 WBC 11.17 H (4.23-9.07) K/mm3 RBC 4.87 (4.63-6.08) M/mm3 Hgb 14.6 (13.7-17.5) gm/dl Hct 43.4 (40.1-51.0) % MCV 89.1 (79.0-92.2) fl MCH 30.0 (25.7-32.2) pg MCHC 33.6 (32.2-35.5) g/dl RDW Std Deviation 50.3 H (35.1-43.9) fL Plt Count 217 (163-337) K/mm3 MPV 10.7 (9.4-12.3) fl Neut % (Auto) 82.2 H (34.0-67.9) % Lymph % (Auto) 8.4 L (21.8-53.1) % Mcintosh % (Auto) 8.8 (5.3-12.2) % Eos % (Auto) 0 L (0.8-7.0) Baso % (Auto) 0.4 (0.1-1.2) % Neut # (Auto) 9.19 H (1.78-5.38) K/mm3 Lymph # (Auto) 0.94 L (1.32-3.57) K/mm3 Mcintosh # (Auto) 0.98 H (0.30-0.82) K/mm3 Eos # (Auto) 0.00 L (0.04-0.54) K/mm3 Baso # (Auto) 0.04 (0.01-0.08) K/mm3 Manual Slide Review Abnormal smear Sodium 140 (136-145) mEq/L Potassium 4.4 (3.5-5.1) mEq/L Chloride 105 (98-107) mEq/L Carbon Dioxide 30 (21-32) mEq/L Anion Gap 9.4 (5-15) BUN 21 H (7-18) mg/dL Creatinine 1.0 (0.7-1.3) mg/dL Est Cr Clr Drug Dosing 99.16 mL/min Estimated GFR (MDRD) > 60 (>60) mL/min BUN/Creatinine Ratio 21.0 H (14-18) Glucose 124 H (70-99) mg/dL Calcium 8.1 L (8.5-10.1) mg/dL Magnesium 2.2 (1.8-2.4) mg/dL Total Bilirubin 0.7 (0.2-1.0) mg/dL Direct Bilirubin 0.20 (0.0-0.2) mg/dl AST 68 H (15-37) U/L ALT 74 H (16-63) U/L Alkaline Phosphatase 45 L (46-116) U/L C-Reactive Protein 2.2 H* (<1.0) mg/dL Total Protein 6.5 (6.4-8.2) g/dl Albumin 2.5 L (3.4-5.0) g/dl Globulin 4.0 gm/dL Albumin/Globulin Ratio 0.6 L (1-2) Result Diagrams: 10/17/20 07:18 10/17/20 07:18 Bob Results Last 24 hrs: Microbiology 10/14/20 20:38 Aerobic Blood Culture - Preliminary Blood - Venous NO GROWTH AFTER 2 DAYS Anaerobic Blood Culture - Preliminary NO GROWTH AFTER 2 DAYS 10/14/20 20:48 Aerobic Blood Culture - Preliminary Blood - Venous - Lab Draw NO GROWTH AFTER 2 DAYS Anaerobic Blood Culture - Preliminary NO GROWTH AFTER 2 DAYS Sepsis Event Note - Evaluation Sepsis Screening Result: No Definite Risk - Focused Exam Vital Signs: Vital Signs Temp Pulse Pulse Resp BP Pulse Ox Pulse Ox 10/17/20 08:37 96 10/17/20 07:25 36.8 C 20 118/80 10/17/20 04:56 36.7 C 70 14 117/88 91 L 10/17/20 00:00 78 96 - Problem List & Annotations (1) Acute respiratory failure due to COVID-19 SNOMED Code(s): 905220219 Code(s): U07.1 - COVID-19; J96.00 - ACUTE RESPIRATORY FAILURE, UNSP W HYPOXIA OR HYPERCAPNIA Status: Acute Priority: High Current Visit: Yes (2) Pneumonia due to COVID-19 virus SNOMED Code(s): 320445969892396927 Code(s): U07.1 - COVID-19; J12.82 - PNEUMONIA DUE TO CORONAVIRUS DISEASE 2019 Status: Acute Priority: High Current Visit: Yes - Problem List Review Problem List Initiated/Reviewed/Updated: Yes - My Orders Last 24 Hours: My Active Orders 10/18/20 05:00 BILIRUBIN DIRECT [CHEM] DAILY COMPREHENSIVE METABOLIC PN,CMP [CHEM] DAILY - Plan Plan:: The patient is an otherwise healthy 50-year-old gentleman who had presented to the emergency department and was subsequently admitted as an inpatient secondary to Covid pneumonia. The patient has been started on remdesivir 200 mg IV initially followed by 100 mg IV for 4 days. I have also started the patient on 9 more days of dexamethasone 6 mg p.o. daily. The patient will also have a azithromycin at 500 mg IV daily. The patient will also be kept on oxygen support to help keep his saturations around 92%. Patient will be kept on telemetry. I have ordered repeat laboratory studies for the morning. The patient will have regular diet as tolerated. He has been encouraged to continue to ambulate. I have also ordered a repeat chest x-ray for Tuesday, October 20, 2020. The patient will also be anticoagulated with Lovenox 40 mg subcutaneously daily. He also be fluid resuscitated with the use of lactated Ringer's. The patient should be appropriate for discharge after fourth dose of his remdesivir depending upon his oxygen demands. 10/16/2020 The patient was admitted secondary to COVID-19 and hypoxia. His oxygen will be continued to keep his saturations around 92%. The patient will be kept on telemetry. We will continue his diet as tolerated. I have ordered repeat laboratory studies for tomorrow. The patient would likely be appropriate for discharge in 1 to 2 days. The patient has mild elevations of his ALT and AST and these have improved from admission. I have ordered repeat comprehensive metabolic panel to ensure that these are trending downward. The patient will also have a repeat C-reactive protein. The patient should be appropriate for discharge once completion of his remdesivir. 10/17/2020 The patient is a 50-year-old gentleman who was admitted to acute hospitalization secondary to acute respiratory failure and Covid pneumonia. The patient has had dexamethasone since admission as well as remdesivir which is scheduled to him tomorrow. Chest x-ray today showed worsening patchy infiltrates. The patient also has oxygen to help keep his saturations around 92%. He is also on a azithromycin and this will be continued. The patient has DVT prophylaxis with the use of Lovenox at 40 mg subcutaneous daily. He will also be continued on IV fluids with Ringer's lactated. The patient has been encouraged to ambulate. Repeat laboratory studies have been ordered. The patient will be appropriate for discharge once his oxygen demands have improved.
[2020-10-17] MEDS: REMDESIVIR 100 MG in Sodium Chloride 0.9% 100 ML IV SCH (19:59)
[2020-10-18] MEDS: Azithromycin 500 MG in Sodium Chloride 0.9% 250 ML IV SCH (06:17)
[2020-10-18] MEDS: Aspirin 81 MG Tab.Chew PO SCH (09:13)
[2020-10-18] MEDS: Enoxaparin 40 MG/0.4 ML Syringe SUBCUT SCH (09:13)
[2020-10-18] MEDS: Zinc Sulfate 220 MG Cap PO SCH (09:13)
[2020-10-18] MEDS: Famotidine 20 MG Tab PO SCH ×2 (09:13→20:20)
[2020-10-18] MEDS: Cholecalciferol (Vitamin D3) 5,000 UNIT Cap PO SCH (09:13)
[2020-10-18] MEDS: Dexamethasone 4 MG Tab PO SCH (09:14)
--- NOTE | 2020-10-18 10:46 | CR ---
Chest: Portable view of the chest was obtained. Comparison: Prior chest x-ray of 10/18/19 and 10/14/20. Worsening increased density within both sides of the chest is seen from prior exam. Heart size and mediastinum are normal. Bony structures show nothing acute. Impression: 1. Diffuse increased density on both sides of the chest compatible with Covid 19 pneumonia. Findings are felt to be slightly increased from previous exam. Diagnostic code #3
--- NOTE | 2020-10-18 12:23 | PCM.PN ---
- General Info Date of Service: 10/18/20 Admission Dx/Problem (Free Text): Admission Diagnosis/Problem Admission Diagnosis/Problem Hypoxia, COVID-19 PNA Functional Status: Reports: Pain Controlled, Tolerating Diet, Ambulating, Urinating, Incentive Spirometry, Other (Acapella ). Denies: New Symptoms - Review of Systems General: Reports: Fatigue. Denies: Fever, Weakness, Malaise, Chills HEENT: Reports: No Symptoms. Denies: Headaches, Sore Throat Pulmonary: Reports: Shortness of Breath, Cough, Sputum. Denies: Pleuritic Chest Pain, Wheezing Cardiovascular: Reports: Dyspnea on Exertion. Denies: Chest Pain, Palpitations, Edema Gastrointestinal: Denies: Abdominal Pain, Constipation, Diarrhea, Nausea, Vomiting Genitourinary: Reports: No Symptoms. Denies: Pain Musculoskeletal: Reports: No Symptoms Skin: Reports: No Symptoms. Denies: Cyanosis Neurological: Reports: No Symptoms. Denies: Confusion, Pre-Existing Deficit, Difficulty Walking, Gait Disturbance Psychiatric: Reports: No Symptoms - Patient Data Vitals - Most Recent: Last Vital Signs Temp 98.1 F 10/18/20 09:19 Pulse 64 10/18/20 01:00 Resp 12 10/18/20 09:19 BP 116/71 10/18/20 09:19 Pulse Ox 92 L 10/18/20 08:27 Weight - Most Recent: 270 lb 1.6 oz I&O - Last 24 Hours: Intake & Output 10/17/20 10/18/20 10/18/20 22:59 06:59 14:59 Intake Total 2740 1641 Output Total 1400 2000 Balance 1340 -359 Lab Results Last 24 Hours: Laboratory Results - last 24 hr 10/18/20 10/18/20 Range/Units 05:10 05:10 WBC 11.38 H (4.23-9.07) K/mm3 RBC 4.64 (4.63-6.08) M/mm3 Hgb 13.7 (13.7-17.5) gm/dl Hct 41.7 (40.1-51.0) % MCV 89.9 (79.0-92.2) fl MCH 29.5 (25.7-32.2) pg MCHC 32.9 (32.2-35.5) g/dl RDW Std Deviation 50.3 H (35.1-43.9) fL Plt Count 226 (163-337) K/mm3 MPV 11.1 (9.4-12.3) fl Neut % (Auto) 79.7 H (34.0-67.9) % Lymph % (Auto) 11.2 L (21.8-53.1) % [place] % (Auto) 8.5 (5.3-12.2) % Eos % (Auto) 0.1 L (0.8-7.0) Baso % (Auto) 0.2 (0.1-1.2) % Neut # (Auto) 9.07 H (1.78-5.38) K/mm3 Lymph # (Auto) 1.28 L (1.32-3.57) K/mm3 [place] # (Auto) 0.97 H (0.30-0.82) K/mm3 Eos # (Auto) 0.01 L (0.04-0.54) K/mm3 Baso # (Auto) 0.02 (0.01-0.08) K/mm3 Manual Slide Review Normal smear Sodium 143 (136-145) mEq/L Potassium 4.5 (3.5-5.1) mEq/L Chloride 108 H (98-107) mEq/L Carbon Dioxide 31 (21-32) mEq/L Anion Gap 8.5 (5-15) BUN 20 H (7-18) mg/dL Creatinine 1.0 (0.7-1.3) mg/dL Est Cr Clr Drug Dosing 99.16 mL/min Estimated GFR (MDRD) > 60 (>60) mL/min BUN/Creatinine Ratio 20.0 H (14-18) Glucose 106 H (70-99) mg/dL Calcium 7.7 L (8.5-10.1) mg/dL Total Bilirubin 0.6 (0.2-1.0) mg/dL Direct Bilirubin 0.20 (0.0-0.2) mg/dl AST 51 H (15-37) U/L ALT 71 H (16-63) U/L Alkaline Phosphatase 44 L (46-116) U/L Total Protein 6.0 L (6.4-8.2) g/dl Albumin 2.3 L (3.4-5.0) g/dl Globulin 3.7 gm/dL Albumin/Globulin Ratio 0.6 L (1-2) Bob Results Last 24 Hours: Microbiology 10/14/20 20:38 Aerobic Blood Culture - Preliminary Blood - Venous NO GROWTH AFTER 3 DAYS Anaerobic Blood Culture - Preliminary NO GROWTH AFTER 3 DAYS 10/14/20 20:48 Aerobic Blood Culture - Preliminary Blood - Venous - Lab Draw NO GROWTH AFTER 3 DAYS Anaerobic Blood Culture - Preliminary NO GROWTH AFTER 3 DAYS Med Orders - Current: Current Medications Acetaminophen (Acetaminophen 325 Mg Tab) 650 mg PO Q4H PRN PRN Reason: Pain (Mild 1-3)/fever Aspirin (Aspirin 81 Mg Tab.Chew) 81 mg PO DAILY [facility] Last Admin: 10/18/20 09:13 Dose: 81 mg Documented by: Cholecalciferol (Cholecalciferol (Vitamin D3) 5,000 Unit Cap) 5,000 unit PO DAILY [facility] Last Admin: 10/18/20 09:13 Dose: 5,000 unit Documented by: Dexamethasone (Dexamethasone 4 Mg Tab) 6 mg PO DAILY [facility] Last Admin: 10/18/20 09:14 Dose: 6 mg Documented by: Enoxaparin Sodium (Enoxaparin 40 Mg/0.4 Ml Syringe) 40 mg SUBCUT DAILY [facility] Last Admin: 10/18/20 09:13 Dose: 40 mg Documented by: Famotidine (Famotidine 20 Mg Tab) 20 mg PO BID [facility] Last Admin: 10/18/20 09:13 Dose: 20 mg Documented by: Remdesivir 100 mg/ Sodium (Chloride) 100 mls @ 100 mls/hr IV Q24H [facility] Stop: 10/18/20 21:59 Last Admin: 10/17/20 19:59 Dose: 100 mls/hr Documented by: Ondansetron HCl (Ondansetron 4 Mg Tab.Dis) 4 mg PO Q4H PRN PRN Reason: nausea, able to take PO Oxycodone HCl (Oxycodone 5 Mg Tab) 5 mg PO Q4H PRN PRN Reason: Pain (moderate 4-6) Temazepam (Temazepam 7.5 Mg Cap) 7.5 mg PO BEDTIME PRN PRN Reason: Sleep Zinc Sulfate (Zinc Sulfate 220 Mg Cap) 220 mg PO DAILY [facility] Last Admin: 10/18/20 09:13 Dose: 220 mg Documented by: Discontinued Medications Dexamethasone (Dexamethasone 4 Mg/Ml 5 Ml Mdv) 6 mg IV ONETIME ONE Stop: 10/14/20 21:54 Last Admin: 10/14/20 22:14 Dose: 6 mg Documented by: Lactated Ringer's (Ringers, Lactated) 1,000 mls @ 75 mls/hr IV ASDIRECTED [facility] Last Admin: 10/17/20 19:50 Dose: 75 mls/hr Documented by: Remdesivir 200 mg/ Sodium (Chloride) 250 mls @ 250 mls/hr IV ONETIME ONE Stop: 10/14/20 21:54 Last Admin: 10/14/20 22:14 Dose: 250 mls/hr Documented by: Azithromycin 500 mg/ Sodium (Chloride) 250 mls @ 250 mls/hr IV Q24H [facility] Last Admin: 10/18/20 06:17 Dose: 250 mls/hr Documented by: - Exam Quality Assessment: Supplemental Oxygen (50L with FiO2 of 60), DVT Prophylaxis. No: Urine Catheter General: Alert, Oriented, Cooperative, No Acute Distress HEENT: Pupils Equal, Pupils Reactive, Mucous Membr. Moist/[place] Neck: Supple, Trachea Midline Lungs: Normal Respiratory Effort, Decreased Breath Sounds, Crackles Cardiovascular: Regular Rate, Regular Rhythm GI/Abdominal Exam: Normal Bowel Sounds, Soft, Non-Tender, No Distention (Male) Exam: Deferred Back Exam: Normal Inspection, Full Range of Motion Extremities: Normal Inspection, Normal Range of Motion, Non-Tender, No Pedal Edema, Normal Capillary Refill Peripheral Pulses: 2+: Radial (L), Radial (R), Dorsalis Pedis (L), Dorsalis Pedis (R) Skin: Warm, Dry, Intact Neurological: No New Focal Deficit Psy/Mental Status: Alert, Normal Affect, Normal Mood - Patient Data Lab Results Last 24 hrs: Laboratory Results - last 24 hr 10/18/20 10/18/20 Range/Units 05:10 05:10 WBC 11.38 H (4.23-9.07) K/mm3 RBC 4.64 (4.63-6.08) M/mm3 Hgb 13.7 (13.7-17.5) gm/dl Hct 41.7 (40.1-51.0) % MCV 89.9 (79.0-92.2) fl MCH 29.5 (25.7-32.2) pg MCHC 32.9 (32.2-35.5) g/dl RDW Std Deviation 50.3 H (35.1-43.9) fL Plt Count 226 (163-337) K/mm3 MPV 11.1 (9.4-12.3) fl Neut % (Auto) 79.7 H (34.0-67.9) % Lymph % (Auto) 11.2 L (21.8-53.1) % [place] % (Auto) 8.5 (5.3-12.2) % Eos % (Auto) 0.1 L (0.8-7.0) Baso % (Auto) 0.2 (0.1-1.2) % Neut # (Auto) 9.07 H (1.78-5.38) K/mm3 Lymph # (Auto) 1.28 L (1.32-3.57) K/mm3 [place] # (Auto) 0.97 H (0.30-0.82) K/mm3 Eos # (Auto) 0.01 L (0.04-0.54) K/mm3 Baso # (Auto) 0.02 (0.01-0.08) K/mm3 Manual Slide Review Normal smear Sodium 143 (136-145) mEq/L Potassium 4.5 (3.5-5.1) mEq/L Chloride 108 H (98-107) mEq/L Carbon Dioxide 31 (21-32) mEq/L Anion Gap 8.5 (5-15) BUN 20 H (7-18) mg/dL Creatinine 1.0 (0.7-1.3) mg/dL Est Cr Clr Drug Dosing 99.16 mL/min Estimated GFR (MDRD) > 60 (>60) mL/min BUN/Creatinine Ratio 20.0 H (14-18) Glucose 106 H (70-99) mg/dL Calcium 7.7 L (8.5-10.1) mg/dL Total Bilirubin 0.6 (0.2-1.0) mg/dL Direct Bilirubin 0.20 (0.0-0.2) mg/dl AST 51 H (15-37) U/L ALT 71 H (16-63) U/L Alkaline Phosphatase 44 L (46-116) U/L Total Protein 6.0 L (6.4-8.2) g/dl Albumin 2.3 L (3.4-5.0) g/dl Globulin 3.7 gm/dL Albumin/Globulin Ratio 0.6 L (1-2) Result Diagrams: 10/18/20 05:10 10/18/20 05:10 Bob Results Last 24 hrs: Microbiology 10/14/20 20:38 Aerobic Blood Culture - Preliminary Blood - Venous NO GROWTH AFTER 3 DAYS Anaerobic Blood Culture - Preliminary NO GROWTH AFTER 3 DAYS 10/14/20 20:48 Aerobic Blood Culture - Preliminary Blood - Venous - Lab Draw NO GROWTH AFTER 3 DAYS Anaerobic Blood Culture - Preliminary NO GROWTH AFTER 3 DAYS Sepsis Event Note - Evaluation Sepsis Screening Result: No Definite Risk - Focused Exam Vital Signs: Vital Signs Temp Pulse Resp BP Pulse Ox Pulse Ox 10/18/20 09:19 98.1 F 12 116/71 10/18/20 08:27 92 L 10/18/20 08:25 94 L 10/18/20 03:00 98.1 F 20 122/79 10/18/20 01:00 64 97 - Problem List & Annotations (1) Hypoxia SNOMED Code(s): 757147445 Code(s): R09.02 - HYPOXEMIA Status: Acute Priority: High Current Visit: Yes (2) Acute respiratory failure due to COVID-19 SNOMED Code(s): 038664585 Code(s): U07.1 - COVID-19; J96.00 - ACUTE RESPIRATORY FAILURE, UNSP W HYPOXIA OR HYPERCAPNIA Status: Acute Priority: High Current Visit: Yes (3) Pneumonia due to COVID-19 virus SNOMED Code(s): 678846201251909055 Code(s): U07.1 - COVID-19; J12.82 - PNEUMONIA DUE TO CORONAVIRUS DISEASE 2019 Status: Acute Priority: High Current Visit: Yes (4) Transaminitis SNOMED Code(s): 501725739, 765119820 Code(s): R74.01 - ELEVATION OF LEVELS OF LIVER TRANSAMINASE LEVELS Status: Acute Priority: Medium Current Visit: Yes - Problem List Review Problem List Initiated/Reviewed/Updated: Yes - My Orders Last 24 Hours: My Active Orders 10/18/20 08:13 Isolation [COMM] Routine 10/18/20 09:00 Aspirin 81 mg PO DAILY Cholecalciferol (Vitamin D3) [Vitamin D3] 5,000 unit PO DAILY Famotidine [Pepcid] 20 mg PO BID Zinc Sulfate [Zincate] 220 mg PO DAILY 10/19/20 05:11 CBC WITH AUTO DIFF [HEME] AM CMP [COMPREHENSIVE METABOLIC PN,CMP] [CHEM] AM CRP [C-REACTIVE PROTEIN] [CHEM] AM MAGNESIUM [CHEM] AM 10/20/20 05:11 CBC WITH AUTO DIFF [HEME] AM CMP [COMPREHENSIVE METABOLIC PN,CMP] [CHEM] AM CRP [C-REACTIVE PROTEIN] [CHEM] AM DD [D-DIMER QUANTITATIVE] [COAG] AM MAGNESIUM [CHEM] AM 10/21/20 05:11 CBC WITH AUTO DIFF [HEME] AM CMP [COMPREHENSIVE METABOLIC PN,CMP] [CHEM] AM CRP [C-REACTIVE PROTEIN] [CHEM] AM MAGNESIUM [CHEM] AM 10/22/20 05:11 CBC WITH AUTO DIFF [HEME] AM CRP [C-REACTIVE PROTEIN] [CHEM] AM MAGNESIUM [CHEM] AM - Assessment Assessment:: 10/15/2020 (admitted late 10/14/2020) The patient is an otherwise healthy 50-year-old gentleman who had presented to the emergency department and was subsequently admitted as an inpatient secondary to Covid pneumonia. The patient has been started on remdesivir 200 mg IV initially followed by 100 mg IV for 4 days. I have also started the patient on 9 more days of dexamethasone 6 mg p.o. daily. The patient will also have a azithromycin at 500 mg IV daily. The patient will also be kept on oxygen sup port to help keep his saturations around 92%. Patient will be kept on telemetry. I have ordered repeat laboratory studies for the morning. The patient will have regular diet as tolerated. He has been encouraged to continue to ambulate. I have also ordered a repeat chest x-ray for Tuesday, October 20, 2020. The patient will also be anticoagulated with Lovenox 40 mg subcutaneously daily. He also be fluid resuscitated with the use of lactated Ringer's. The patient should be appropriate for discharge after fourth dose of his remdesivir depending upon his oxygen demands. 10/16/2020 The patient was admitted secondary to COVID-19 and hypoxia. His oxygen will be continued to keep his saturations around 92%. The patient will be kept on telemetry. We will continue his diet as tolerated. I have ordered repeat laboratory studies for tomorrow. The patient would likely be appropriate for discharge in 1 to 2 days. The patient has mild elevations of his ALT and AST and these have improved from admission. I have ordered repeat comprehensive metabolic panel to ensure that these are trending downward. The patient will also have a repeat C-reactive protein. The patient should be appropriate for discharge once completion of his remdesivir. 10/17/2020 The patient is a 50-year-old gentleman who was admitted to acute hospitalization secondary to acute respiratory failure and Covid pneumonia. The patient has had dexamethasone since admission as well as remdesivir which is scheduled to him tomorrow. Chest x-ray today showed worsening patchy infiltrates. The patient also has oxygen to help keep his saturations around 92%. He is also on a azithromycin and this will be continued. The patient has DVT prophylaxis with the use of Lovenox at 40 mg subcutaneous daily. He will also be continued on IV fluids with Ringer's lactated. The patient has been encouraged to ambulate. Repeat laboratory studies have been ordered. The patient will be appropriate for discharge once his oxygen demands have improved. 10/18/2020 50-year-old male new to the hospital due to acute respiratory failure secondary to Covid pneumonia. He was receiving azithromycin and this was discontinued today after 5 days of treatment. Nursing reported patient is up to 4 pounds and IV fluids had been running. Chest x-ray was obtained to ensure no fluid overload. IV fluids were subsequently discontinued. He was started on 81 mg daily aspirin along with zinc and vitamin D supplementation. Vitamin D level is pending. He continues on high flow oxygen 50 L at 60% FiO2. He will complete his remdesivir treatment today. We will continue 6 mg daily dexamethasone. We will recheck a daily labs tomorrow including a D-dimer. He has been ambulating around the room and utilizing his I-S and Acapella. He reports he prone's every night while sleeping. Denies any history of smoking. Reports symptoms began around 10/08/2020. He will continue hospitalized until he is able to be weaned off of high flow and on too much lower nasal cannula requirements. Goal would be 2 L or less nasal cannula. From a lab standpoint he has been quite stable. There is a mild leukocytosis which is likely secondary to steroid use. He repo rts he feels better and is breathing has improved. We will continue current treatment plan. - Plan Plan:: Hypoxia Acute respiratory failure due to COVID-19 Pneumonia due to COVID-19 virus Transaminitis, improving * Discontinue azithromycin today after 5 days of treatment * Remdesivir - day 09/21 * Dexamethasone - day 09/26 * IS/Acapella * Consult RT * O2 as needed with goal saturations of 88-95% * Attempt to wean high flow oxygen as tolerated * 81 mg daily ASA * Supplement zinc * Vitamin D supplementation * Check vitamin d level * Pepcid 20mg BID * Lovenox 40mg dialy * Prone whenever able * Ambulate around room * Daily labs * Re-check D-Dimer tomorrow * Telemetry * Continuous pulse oximetry * Airborne and contact precautions Code status: Full code PCP: None DVT prophylaxis: Lovenox Disposition: Patient admitted for management of his respiratory failure due to COVID-19 pneumonia. Patient will remain admitted due to increased oxygen demand. Hopeful for discharge in next 2 to 3 days pending ability to wean off of high flow oxygen.
[2020-10-18] MEDS: REMDESIVIR 100 MG in Sodium Chloride 0.9% 100 ML IV SCH (20:20)
--- NOTE | 2020-10-19 07:36 | PCM.PN ---
- General Info Date of Service: 10/19/20 Admission Dx/Problem (Free Text): Admission Diagnosis/Problem Admission Diagnosis/Problem Hypoxia, COVID-19 PNA Functional Status: Reports: Pain Controlled, Tolerating Diet, Ambulating, Urinating, Incentive Spirometry, Other (Acapella ). Denies: New Symptoms - Review of Systems General: Reports: No Symptoms. Denies: Fever, Weakness, Fatigue, Malaise, Chills HEENT: Reports: No Symptoms. Denies: Headaches, Sore Throat Pulmonary: Reports: Shortness of Breath, Cough, Sputum. Denies: Pleuritic Chest Pain Cardiovascular: Reports: No Symptoms, Dyspnea on Exertion. Denies: Chest Pain, Palpitations, Edema Gastrointestinal: Reports: No Symptoms. Denies: Abdominal Pain, Constipation, D iarrhea, Nausea, Vomiting Genitourinary: Reports: No Symptoms. Denies: Pain Musculoskeletal: Reports: No Symptoms Skin: Reports: No Symptoms. Denies: Cyanosis Neurological: Reports: No Symptoms. Denies: Confusion, Dizziness, Headache, Numbness, Tingling, Difficulty Walking, Gait Disturbance Psychiatric: Reports: No Symptoms - Patient Data Vitals - Most Recent: Last Vital Signs Temp 98.1 F 10/19/20 04:00 Pulse 69 10/19/20 04:00 Resp 20 10/19/20 04:00 BP 137/97 H 10/19/20 04:00 Pulse Ox 93 L 10/19/20 07:06 Weight - Most Recent: 268 lb 1.6 oz I&O - Last 24 Hours: Intake & Output 10/18/20 10/19/20 10/19/20 22:59 06:59 14:59 Intake Total 2348 900 Output Total 1350 1800 Balance 998 -900 Lab Results Last 24 Hours: Laboratory Results - last 24 hr 10/18/20 10/18/20 10/19/20 Range/Units 05:10 05:10 05:40 WBC 11.48 H (4.23-9.07) K/mm3 RBC 4.67 (4.63-6.08) M/mm3 Hgb 14.1 (13.7-17.5) gm/dl Hct 41.6 (40.1-51.0) % MCV 89.1 (79.0-92.2) fl MCH 30.2 (25.7-32.2) pg MCHC 33.9 (32.2-35.5) g/dl RDW Std Deviation 49.1 H (35.1-43.9) fL Plt Count 248 (163-337) K/mm3 MPV 10.6 (9.4-12.3) fl Neut % (Auto) 81.2 H (34.0-67.9) % Lymph % (Auto) 9.1 L (21.8-53.1) % Potter % (Auto) 8.6 (5.3-12.2) % Eos % (Auto) 0.3 L (0.8-7.0) Baso % (Auto) 0.2 (0.1-1.2) % Neut # (Auto) 9.33 H (1.78-5.38) K/mm3 Lymph # (Auto) 1.04 L (1.32-3.57) K/mm3 Potter # (Auto) 0.99 H (0.30-0.82) K/mm3 Eos # (Auto) 0.03 L (0.04-0.54) K/mm3 Baso # (Auto) 0.02 (0.01-0.08) K/mm3 Manual Slide Review Abnormal smear Sodium (136-145) mEq/L Potassium (3.5-5.1) mEq/L Chloride (98-107) mEq/L Carbon Dioxide (21-32) mEq/L Anion Gap (5-15) BUN (7-18) mg/dL Creatinine (0.7-1.3) mg/dL Est Cr Clr Drug Dosing mL/min Estimated GFR (MDRD) (>60) mL/min BUN/Creatinine Ratio (14-18) Glucose (70-99) mg/dL Calcium (8.5-10.1) mg/dL Magnesium (1.8-2.4) mg/dL Total Bilirubin (0.2-1.0) mg/dL Direct Bilirubin 0.20 (0.0-0.2) mg/dl AST (15-37) U/L ALT (16-63) U/L Alkaline Phosphatase (46-116) U/L C-Reactive Protein (<1.0) mg/dL Total Protein (6.4-8.2) g/dl Albumin (3.4-5.0) g/dl Globulin gm/dL Albumin/Globulin Ratio (1-2) Vitamin D 25-Hydroxy 42.9 (30.0-100.0) ng/ml 10/19/20 Range/Units 05:40 WBC (4.23-9.07) K/mm3 RBC (4.63-6.08) M/mm3 Hgb (13.7-17.5) gm/dl Hct (40.1-51.0) % MCV (79.0-92.2) fl MCH (25.7-32.2) pg MCHC (32.2-35.5) g/dl RDW Std Deviation (35.1-43.9) fL Plt Count (163-337) K/mm3 MPV (9.4-12.3) fl Neut % (Auto) (34.0-67.9) % Lymph % (Auto) (21.8-53.1) % Potter % (Auto) (5.3-12.2) % Eos % (Auto) (0.8-7.0) Baso % (Auto) (0.1-1.2) % Neut # (Auto) (1.78-5.38) K/mm3 Lymph # (Auto) (1.32-3.57) K/mm3 Potter # (Auto) (0.30-0.82) K/mm3 Eos # (Auto) (0.04-0.54) K/mm3 Baso # (Auto) (0.01-0.08) K/mm3 Manual Slide Review Sodium 142 (136-145) mEq/L Potassium 4.0 (3.5-5.1) mEq/L Chloride 106 (98-107) mEq/L Carbon Dioxide 31 (21-32) mEq/L Anion Gap 9.0 (5-15) BUN 16 (7-18) mg/dL Creatinine 1.0 (0.7-1.3) mg/dL Est Cr Clr Drug Dosing 99.16 mL/min Estimated GFR (MDRD) > 60 (>60) mL/min BUN/Creatinine Ratio 16.0 (14-18) Glucose 96 (70-99) mg/dL Calcium 7.6 L (8.5-10.1) mg/dL Magnesium 2.1 (1.8-2.4) mg/dL Total Bilirubin 0.7 (0.2-1.0) mg/dL Direct Bilirubin (0.0-0.2) mg/dl AST 40 H (15-37) U/L ALT 70 H (16-63) U/L Alkaline Phosphatase 44 L (46-116) U/L C-Reactive Protein 4.1 H* (<1.0) mg/dL Total Protein 6.2 L (6.4-8.2) g/dl Albumin 2.3 L (3.4-5.0) g/dl Globulin 3.9 gm/dL Albumin/Globulin Ratio 0.6 L (1-2) Vitamin D 25-Hydroxy (30.0-100.0) ng/ml Bob Results Last 24 Hours: Microbiology 10/14/20 20:38 Aerobic Blood Culture - Preliminary Blood - Venous NO GROWTH AFTER 4 DAYS Anaerobic Blood Culture - Preliminary NO GROWTH AFTER 4 DAYS 10/14/20 20:48 Aerobic Blood Culture - Preliminary Blood - Venous - Lab Draw NO GROWTH AFTER 4 DAYS Anaerobic Blood Culture - Preliminary NO GROWTH AFTER 4 DAYS Med Orders - Current: Current Medications Acetaminophen (Acetaminophen 325 Mg Tab) 650 mg PO Q4H PRN PRN Reason: Pain (Mild 1-3)/fever Aspirin (Aspirin 81 Mg Tab.Chew) 81 mg PO DAILY [facility] Last Admin: 10/18/20 09:13 Dose: 81 mg Documented by: Cholecalciferol (Cholecalciferol (Vitamin D3) 5,000 Unit Cap) 5,000 unit PO DAILY [facility] Last Admin: 10/18/20 09:13 Dose: 5,000 unit Documented by: Dexamethasone (Dexamethasone 4 Mg Tab) 6 mg PO DAILY [facility] Stop: 10/25/20 09:01 Last Admin: 10/18/20 09:14 Dose: 6 mg Documented by: Enoxaparin Sodium (Enoxaparin 40 Mg/0.4 Ml Syringe) 40 mg SUBCUT DAILY [facility] Last Admin: 10/18/20 09:13 Dose: 40 mg Documented by: Famotidine (Famotidine 20 Mg Tab) 20 mg PO BID [facility] Last Admin: 10/18/20 20:20 Dose: 20 mg Documented by: Ondansetron HCl (Ondansetron 4 Mg Tab.Dis) 4 mg PO Q4H PRN PRN Reason: nausea, able to take PO Oxycodone HCl (Oxycodone 5 Mg Tab) 5 mg PO Q4H PRN PRN Reason: Pain (moderate 4-6) Temazepam (Temazepam 7.5 Mg Cap) 7.5 mg PO BEDTIME PRN PRN Reason: Sleep Zinc Sulfate (Zinc Sulfate 220 Mg Cap) 220 mg PO DAILY [facility] Last Admin: 10/18/20 09:13 Dose: 220 mg Documented by: Discontinued Medications Dexamethasone (Dexamethasone 4 Mg/Ml 5 Ml Mdv) 6 mg IV ONETIME ONE Stop: 10/14/20 21:54 Last Admin: 10/14/20 22:14 Dose: 6 mg Documented by: Lactated Ringer's (Ringers, Lactated) 1,000 mls @ 75 mls/hr IV ASDIRECTED [facility] Last Admin: 10/17/20 19:50 Dose: 75 mls/hr Documented by: Remdesivir 200 mg/ Sodium (Chloride) 250 mls @ 250 mls/hr IV ONETIME ONE Stop: 10/14/20 21:54 Last Admin: 10/14/20 22:14 Dose: 250 mls/hr Documented by: Remdesivir 100 mg/ Sodium (Chloride) 100 mls @ 100 mls/hr IV Q24H [facility] Stop: 10/18/20 21:59 Last Admin: 10/18/20 20:20 Dose: 100 mls/hr Documented by: Azithromycin 500 mg/ Sodium (Chloride) 250 mls @ 250 mls/hr IV Q24H [facility] Last Admin: 10/18/20 06:17 Dose: 250 mls/hr Documented by: - Exam Quality Assessment: Supplemental Oxygen (high flow 45L with FIO2 of 55), DVT Prophylaxis General: Alert, Oriented, Cooperative, No Acute Distress HEENT: Pupils Equal, Pupils Reactive, Mucous Membr. Moist/[place] Neck: Supple, Trachea Midline Lungs: Normal Respiratory Effort, Decreased Breath Sounds. No: Crackles, Rhonchi, Wheezing Cardiovascular: Regular Rate, Regular Rhythm GI/Abdominal Exam: Normal Bowel Sounds, Soft, Non-Tender, No Distention (Male) Exam: Deferred Back Exam: Normal Inspection, Full Range of Motion Extremities: Normal Inspection, Normal Range of Motion, Non-Tender, No Pedal Edema, Normal Capillary Refill Peripheral Pulses: 2+: Radial (L), Radial (R), Dorsalis Pedis (L), Dorsalis Pedis (R) Skin: Warm, Dry, Intact Neurological: No New Focal Deficit Psy/Mental Status: Alert, Normal Affect, Normal Mood - Patient Data Lab Results Last 24 hrs: Laboratory Results - last 24 hr 10/18/20 10/18/20 10/19/20 Range/Units 05:10 05:10 05:40 WBC 11.48 H (4.23-9.07) K/mm3 RBC 4.67 (4.63-6.08) M/mm3 Hgb 14.1 (13.7-17.5) gm/dl Hct 41.6 (40.1-51.0) % MCV 89.1 (79.0-92.2) fl MCH 30.2 (25.7-32.2) pg MCHC 33.9 (32.2-35.5) g/dl RDW Std Deviation 49.1 H (35.1-43.9) fL Plt Count 248 (163-337) K/mm3 MPV 10.6 (9.4-12.3) fl Neut % (Auto) 81.2 H (34.0-67.9) % Lymph % (Auto) 9.1 L (21.8-53.1) % Potter % (Auto) 8.6 (5.3-12.2) % Eos % (Auto) 0.3 L (0.8-7.0) Baso % (Auto) 0.2 (0.1-1.2) % Neut # (Auto) 9.33 H (1.78-5.38) K/mm3 Lymph # (Auto) 1.04 L (1.32-3.57) K/mm3 Potter # (Auto) 0.99 H (0.30-0.82) K/mm3 Eos # (Auto) 0.03 L (0.04-0.54) K/mm3 Baso # (Auto) 0.02 (0.01-0.08) K/mm3 Manual Slide Review Abnormal smear Sodium (136-145) mEq/L Potassium (3.5-5.1) mEq/L Chloride (98-107) mEq/L Carbon Dioxide (21-32) mEq/L Anion Gap (5-15) BUN (7-18) mg/dL Creatinine (0.7-1.3) mg/dL Est Cr Clr Drug Dosing mL/min Estimated GFR (MDRD) (>60) mL/min BUN/Creatinine Ratio (14-18) Glucose (70-99) mg/dL Calcium (8.5-10.1) mg/dL Magnesium (1.8-2.4) mg/dL Total Bilirubin (0.2-1.0) mg/dL Direct Bilirubin 0.20 (0.0-0.2) mg/dl AST (15-37) U/L ALT (16-63) U/L Alkaline Phosphatase (46-116) U/L C-Reactive Protein (<1.0) mg/dL Total Protein (6.4-8.2) g/dl Albumin (3.4-5.0) g/dl Globulin gm/dL Albumin/Globulin Ratio (1-2) Vitamin D 25-Hydroxy 42.9 (30.0-100.0) ng/ml 10/19/20 Range/Units 05:40 WBC (4.23-9.07) K/mm3 RBC (4.63-6.08) M/mm3 Hgb (13.7-17.5) gm/dl Hct (40.1-51.0) % MCV (79.0-92.2) fl MCH (25.7-32.2) pg MCHC (32.2-35.5) g/dl RDW Std Deviation (35.1-43.9) fL Plt Count (163-337) K/mm3 MPV (9.4-12.3) fl Neut % (Auto) (34.0-67.9) % Lymph % (Auto) (21.8-53.1) % Potter % (Auto) (5.3-12.2) % Eos % (Auto) (0.8-7.0) Baso % (Auto) (0.1-1.2) % Neut # (Auto) (1.78-5.38) K/mm3 Lymph # (Auto) (1.32-3.57) K/mm3 Potter # (Auto) (0.30-0.82) K/mm3 Eos # (Auto) (0.04-0.54) K/mm3 Baso # (Auto) (0.01-0.08) K/mm3 Manual Slide Review Sodium 142 (136-145) mEq/L Potassium 4.0 (3.5-5.1) mEq/L Chloride 106 (98-107) mEq/L Carbon Dioxide 31 (21-32) mEq/L Anion Gap 9.0 (5-15) BUN 16 (7-18) mg/dL Creatinine 1.0 (0.7-1.3) mg/dL Est Cr Clr Drug Dosing 99.16 mL/min Estimated GFR (MDRD) > 60 (>60) mL/min BUN/Creatinine Ratio 16.0 (14-18) Glucose 96 (70-99) mg/dL Calcium 7.6 L (8.5-10.1) mg/dL Magnesium 2.1 (1.8-2.4) mg/dL Total Bilirubin 0.7 (0.2-1.0) mg/dL Direct Bilirubin (0.0-0.2) mg/dl AST 40 H (15-37) U/L ALT 70 H (16-63) U/L Alkaline Phosphatase 44 L (46-116) U/L C-Reactive Protein 4.1 H* (<1.0) mg/dL Total Protein 6.2 L (6.4-8.2) g/dl Albumin 2.3 L (3.4-5.0) g/dl Globulin 3.9 gm/dL Albumin/Globulin Ratio 0.6 L (1-2) Vitamin D 25-Hydroxy (30.0-100.0) ng/ml Result Diagrams: 10/19/20 05:40 10/19/20 05:40 Bob Results Last 24 hrs: Microbiology 10/14/20 20:38 Aerobic Blood Culture - Preliminary Blood - Venous NO GROWTH AFTER 4 DAYS Anaerobic Blood Culture - Preliminary NO GROWTH AFTER 4 DAYS 10/14/20 20:48 Aerobic Blood Culture - Preliminary Blood - Venous - Lab Draw NO GROWTH AFTER 4 DAYS Anaerobic Blood Culture - Preliminary NO GROWTH AFTER 4 DAYS Sepsis Event Note - Evaluation Sepsis Screening Result: No Definite Risk - Focused Exam Vital Signs: Vital Signs Temp Pulse Resp BP Pulse Ox Pulse Ox 10/19/20 07:06 93 L 10/19/20 04:00 98.1 F 69 20 137/97 H 90 L 10/19/20 01:48 96 10/18/20 20:19 98.1 F 76 20 123/82 89 L 10/18/20 19:51 90 L - Problem List & Annotations (1) Hypoxia SNOMED Code(s): 336180168 Code(s): R09.02 - HYPOXEMIA Status: Acute Priority: High Current Visit: Yes (2) Acute respiratory failure due to COVID-19 SNOMED Code(s): 648088808 Code(s): U07.1 - COVID-19; J96.00 - ACUTE RESPIRATORY FAILURE, UNSP W HYPOXIA OR HYPERCAPNIA Status: Acute Priority: High Current Visit: Yes (3) Pneumonia due to COVID-19 virus SNOMED Code(s): 240772143195079714 Code(s): U07.1 - COVID-19; J12.82 - PNEUMONIA DUE TO CORONAVIRUS DISEASE 2019 Status: Acute Priority: High Current Visit: Yes (4) Transaminitis SNOMED Code(s): 938899247, 538076499 Code(s): R74.01 - ELEVATION OF LEVELS OF LIVER TRANSAMINASE LEVELS Status: Acute Priority: Medium Current Visit: Yes - Problem List Review Problem List Initiated/Reviewed/Updated: Yes - My Orders Last 24 Hours: My Active Orders 10/18/20 08:13 Isolation [COMM] Routine 10/18/20 09:00 Aspirin 81 mg PO DAILY Cholecalciferol (Vitamin D3) [Vitamin D3] 5,000 unit PO DAILY Famotidine [Pepcid] 20 mg PO BID Zinc Sulfate [Zincate] 220 mg PO DAILY 10/18/20 12:28 Consult to Respiratory Therapy [Respiratory Care Assess and Treatment] [CONS] Routine 10/18/20 12:30 patient positioning [Positioning, Patient] [RC] ASDIRECTED 10/20/20 05:11 CBC WITH AUTO DIFF [HEME] AM CMP [COMPREHENSIVE METABOLIC PN,CMP] [CHEM] AM CRP [C-REACTIVE PROTEIN] [CHEM] AM DD [D-DIMER QUANTITATIVE] [COAG] AM MAGNESIUM [CHEM] AM 10/21/20 05:11 CBC WITH AUTO DIFF [HEME] AM CMP [COMPREHENSIVE METABOLIC PN,CMP] [CHEM] AM CRP [C-REACTIVE PROTEIN] [CHEM] AM MAGNESIUM [CHEM] AM 10/22/20 05:11 CBC WITH AUTO DIFF [HEME] AM CRP [C-REACTIVE PROTEIN] [CHEM] AM MAGNESIUM [CHEM] AM - Assessment Assessment:: 10/15/2020 (admitted late 10/14/2020) The patient is an otherwise healthy 50-year-old gentleman who had presented to the emergency department and was subsequently admitted as an inpatient secondary to Covid pneumonia. The patient has been started on remdesivir 200 mg IV initially followed by 100 mg IV for 4 days. I have also started the patient on 9 more days of dexamethasone 6 mg p.o. daily. The patient will also have a azithromycin at 500 mg IV daily. The patient will also be kept on oxygen support to help keep his saturations around 92%. Patient will be kept on telemetry. I have ordered repeat laboratory studies for the morning. The patient will have regular diet as tolerated. He has been encouraged to continue to ambulate. I have also ordered a repeat chest x-ray for Tuesday, October 20, 2020. The patient will also be anticoagulated with Lovenox 40 mg subcutaneously daily. He also be fluid resuscitated with the use of lactated Ringer's. The patient should be appropriate for discharge after fourth dose of his remdesivir depending upon his oxygen demands. 10/16/2020 The patient was admitted secondary to COVID-19 and hypoxia. His oxygen will be continued to keep his saturations around 92%. The patient will be kept on telemetry. We will continue his diet as tolerated. I have ordered repeat l aboratory studies for tomorrow. The patient would likely be appropriate for discharge in 1 to 2 days. The patient has mild elevations of his ALT and AST and these have improved from admission. I have ordered repeat comprehensive metabolic panel to ensure that these are trending downward. The patient will also have a repeat C-reactive protein. The patient should be appropriate for discharge once completion of his remdesivir. 10/17/2020 The patient is a 50-year-old gentleman who was admitted to acute hospitalization secondary to acute respiratory failure and Covid pneumonia. The patient has had dexamethasone since admission as well as remdesivir which is scheduled to him tomorrow. Chest x-ray today showed worsening patchy infiltrates. The patient also has oxygen to help keep his saturations around 92%. He is also on a azithromycin and this will be continued. The patient has DVT prophylaxis with the use of Lovenox at 40 mg subcutaneous daily. He will also be continued on IV fluids with Ringer's lactated. The patient has been encouraged to ambulate. Repeat laboratory studies have been ordered. The patient will be appropriate for discharge once his oxygen demands have improved. 10/18/2020 50-year-old male new to the hospital due to acute respiratory failure secondary to Covid pneumonia. He was receiving azithromycin and this was discontinued today after 5 days of treatment. Nursing reported patient is up to 4 pounds and IV fluids had been running. Chest x-ray was obtained to ensure no fluid overload. IV fluids were subsequently discontinued. He was started on 81 mg daily aspirin along with zinc and vitamin D supplementation. Vitamin D level is pending. He continues on high flow oxygen 50 L at 60% FiO2. He will complete his remdesivir treatment today. We will continue 6 mg daily dexamethasone. We will recheck a daily labs tomorrow including a D-dimer. He has been ambulating around the room and utilizing his I-S and Acapella. He reports he prone's every night while sleeping. Denies any history of smoking. Reports symptoms began around 10/08/2020. He will continue hospitalized until he is able to be weaned off of high flow and on too much lower nasal cannula requirements. Goal would be 2 L or less nasal cannula. From a lab standpoint he has been quite stable. There is a mild leukocytosis which is likely secondary to steroid use. He reports he feels better and is breathing has improved. We will continue current treatment plan. 10/19/2020 50-year-old male admitted to the hospital due to acute respiratory failure and hypoxia secondary to Covid pneumonia. He completed 5 days azithromycin and 5 days of remdesivir. He remains on high flow oxygen however we have been able to titrate this down to 45 L with an FiO2 of 55. He states he feels pretty good. He has been utilizing his Acapella and incentive spirometry and ambulating around the room. He has been proning while resting. Today WBC remains elevated 11.48, likely secondary to steroid use. Platelets have increased to 248,000. Liver enzymes continue to be improved with AST 40, ALT of 70, alkaline phosphatase 44. CRP today is 4.1. Albumin remains low at 2.3. Otherwise patient is doing quite well. Plan is to continue to wean oxygen as tolerated. Patient will likely need to discharge on oxygen however we will attempt to wean him down to 1 to 2 L via nasal cannula. We will continue dexamethasone for 10 days. Continue current treatment plan. - Plan Plan:: Hypoxia Acute respiratory failure due to COVID-19 Pneumonia due to COVID-19 virus Transaminitis, improving * Discontinue azithromycin today after 5 days of treatment * Completed Remdesivir * Dexamethasone - day 10/27 * IS/Acapella * Consult RT * O2 as needed with goal saturations of 88-95% * Attempt to wean high flow oxygen as tolerated * 81 mg daily ASA * Supplement zinc * Vitamin D supplementation * Check vitamin d level * Pepcid 20mg BID * Lovenox 40mg dialy * Prone whenever able * Ambulate around room * Daily labs * Re-check D-Dimer tomorrow * Telemetry * Continuous pulse oximetry * Airborne and contact precautions Code status: Full code PCP: None DVT prophylaxis: Lovenox Disposition: Patient admitted for management of his respiratory failure due to COVID-19 pneumonia. Patient will remain admitted due to increased oxygen demand. Hopeful for discharge in next 2 to 3 days pending ability to wean off of high flow oxygen.
[2020-10-19] MEDS: Zinc Sulfate 220 MG Cap PO SCH (08:05)
[2020-10-19] MEDS: Dexamethasone 4 MG Tab PO SCH (08:05)
[2020-10-19] MEDS: Enoxaparin 40 MG/0.4 ML Syringe SUBCUT SCH (08:06)
[2020-10-19] MEDS: Aspirin 81 MG Tab.Chew PO SCH (08:06)
[2020-10-19] MEDS: Famotidine 20 MG Tab PO SCH ×2 (08:06→21:03)
[2020-10-19] MEDS: Cholecalciferol (Vitamin D3) 5,000 UNIT Cap PO SCH (08:06)
--- NOTE | 2020-10-20 07:51 | PCM.PN ---
<Ethan Nelson - Last Filed: 10/20/20 11:43> - General Info Date of Service: 10/20/20 Admission Dx/Problem (Free Text): Admission Diagnosis/Problem Admission Diagnosis/Problem Hypoxia, COVID-19 PNA Functional Status: Reports: Pain Controlled, Tolerating Diet, Ambulating, Urinating, Incentive Spirometry, Other (Acapella ). Denies: New Symptoms - Review of Systems General: Reports: No Symptoms. Denies: Fever, Weakness, Fatigue, Malaise, Chills HEENT: Reports: No Symptoms. Denies: Headaches, Sore Throat Pulmonary: Reports: Shortness of Breath, Cough, Sputum. Denies: Pleuritic Chest Pain Cardiovascular: Reports: Dyspnea on Exertion. Denies: Chest Pain, Palpitations, Edema, Lightheadedness Gastrointestinal: Reports: No Symptoms. Denies: Abdominal Pain, Constipation, Diarrhea, Nausea, Vomiting Genitourinary: Reports: No Symptoms. Denies: Pain Musculoskeletal: Reports: No Symptoms Skin: Reports: No Symptoms. Denies: Cyanosis Neurological: Reports: No Symptoms. Denies: Confusion, Pre-Existing Deficit, Difficulty Walking, Weakness, Gait Disturbance Psychiatric: Reports: No Symptoms - Patient Data Vitals - Most Recent: Last Vital Signs Temp 98.2 F 10/19/20 21:02 Pulse 78 10/20/20 07:20 Resp 18 10/20/20 07:20 BP 119/64 10/20/20 07:20 Pulse Ox 88 L 10/20/20 07:20 Weight - Most Recent: 267 lb 1.6 oz I&O - Last 24 Hours: Intake & Output 10/19/20 10/20/20 10/20/20 22:59 06:59 14:59 Intake Total 1840 800 Output Total 1650 2000 Balance 190 -1200 Lab Results Last 24 Hours: Laboratory Results - last 24 hr 10/20/20 10/20/20 10/20/20 Range/Units 06:10 06:10 06:10 WBC 11.42 H (4.23-9.07) K/mm3 RBC 4.68 (4.63-6.08) M/mm3 Hgb 13.9 (13.7-17.5) gm/dl Hct 41.9 (40.1-51.0) % MCV 89.5 (79.0-92.2) fl MCH 29.7 (25.7-32.2) pg MCHC 33.2 (32.2-35.5) g/dl RDW Std Deviation 48.9 H (35.1-43.9) fL Plt Count 282 (163-337) K/mm3 MPV 10.4 (9.4-12.3) fl Neut % (Auto) 77.1 H (34.0-67.9) % Lymph % (Auto) 10.2 L (21.8-53.1) % [place] % (Auto) 10.3 (5.3-12.2) % Eos % (Auto) 1.6 (0.8-7.0) Baso % (Auto) 0.2 (0.1-1.2) % Neut # (Auto) 8.80 H (1.78-5.38) K/mm3 Lymph # (Auto) 1.17 L (1.32-3.57) K/mm3 [place] # (Auto) 1.18 H (0.30-0.82) K/mm3 Eos # (Auto) 0.18 (0.04-0.54) K/mm3 Baso # (Auto) 0.02 (0.01-0.08) K/mm3 Manual Slide Review Normal smear D-Dimer, Quantitative 0.41 (0.19-0.50) mg/L Sodium 139 (136-145) mEq/L Potassium 4.2 (3.5-5.1) mEq/L Chloride 106 (98-107) mEq/L Carbon Dioxide 30 (21-32) mEq/L Anion Gap 7.2 (5-15) BUN 17 (7-18) mg/dL Creatinine 1.1 (0.7-1.3) mg/dL Est Cr Clr Drug Dosing 90.14 mL/min Estimated GFR (MDRD) > 60 (>60) mL/min BUN/Creatinine Ratio 15.5 (14-18) Glucose 90 (70-99) mg/dL Calcium 8.1 L (8.5-10.1) mg/dL Magnesium 2.2 (1.8-2.4) mg/dL Total Bilirubin 0.6 (0.2-1.0) mg/dL AST 35 (15-37) U/L ALT 65 H (16-63) U/L Alkaline Phosphatase 34 L (46-116) U/L C-Reactive Protein 5.9 H* (<1.0) mg/dL Total Protein 6.2 L (6.4-8.2) g/dl Albumin 2.2 L (3.4-5.0) g/dl Globulin 4.0 gm/dL Albumin/Globulin Ratio 0.6 L (1-2) Bob Results Last 24 Hours: Microbiology 10/14/20 20:38 Aerobic Blood Culture - Preliminary Blood - Venous NO GROWTH AFTER 5 DAYS Anaerobic Blood Culture - Preliminary NO GROWTH AFTER 5 DAYS 10/14/20 20:48 Aerobic Blood Culture - Preliminary Blood - Venous - Lab Draw NO GROWTH AFTER 5 DAYS Anaerobic Blood Culture - Preliminary NO GROWTH AFTER 5 DAYS Med Orders - Current: Current Medications Acetaminophen (Acetaminophen 325 Mg Tab) 650 mg PO Q4H PRN PRN Reason: Pain (Mild 1-3)/fever Aspirin (Aspirin 81 Mg Tab.Chew) 81 mg PO DAILY [facility] Last Admin: 10/19/20 08:06 Dose: 81 mg Documented by: Cholecalciferol (Cholecalciferol (Vitamin D3) 5,000 Unit Cap) 5,000 unit PO DAILY [facility] Last Admin: 10/19/20 08:06 Dose: 5,000 unit Documented by: Dexamethasone (Dexamethasone 4 Mg Tab) 6 mg PO DAILY [facility] Stop: 10/25/20 09:01 Last Admin: 10/19/20 08:05 Dose: 6 mg Documented by: Enoxaparin Sodium (Enoxaparin 40 Mg/0.4 Ml Syringe) 40 mg SUBCUT DAILY [facility] Last Admin: 10/19/20 08:06 Dose: 40 mg Documented by: Famotidine (Famotidine 20 Mg Tab) 20 mg PO BID [facility] Last Admin: 10/19/20 21:03 Dose: 20 mg Documented by: Ondansetron HCl (Ondansetron 4 Mg Tab.Dis) 4 mg PO Q4H PRN PRN Reason: nausea, able to take PO Oxycodone HCl (Oxycodone 5 Mg Tab) 5 mg PO Q4H PRN PRN Reason: Pain (moderate 4-6) Temazepam (Temazepam 7.5 Mg Cap) 7.5 mg PO BEDTIME PRN PRN Reason: Sleep Zinc Sulfate (Zinc Sulfate 220 Mg Cap) 220 mg PO DAILY [facility] Last Admin: 10/19/20 08:05 Dose: 220 mg Documented by: Discontinued Medications Dexamethasone (Dexamethasone 4 Mg/Ml 5 Ml Mdv) 6 mg IV ONETIME ONE Stop: 10/14/20 21:54 Last Admin: 10/14/20 22:14 Dose: 6 mg Documented by: Lactated Ringer's (Ringers, Lactated) 1,000 mls @ 75 mls/hr IV ASDIRECTED [facility] Last Admin: 10/17/20 19:50 Dose: 75 mls/hr Documented by: Remdesivir 200 mg/ Sodium (Chloride) 250 mls @ 250 mls/hr IV ONETIME ONE Stop: 10/14/20 21:54 Last Admin: 10/14/20 22:14 Dose: 250 mls/hr Documented by: Remdesivir 100 mg/ Sodium (Chloride) 100 mls @ 100 mls/hr IV Q24H [facility] Stop: 10/18/20 21:59 Last Admin: 10/18/20 20:20 Dose: 100 mls/hr Documented by: Azithromycin 500 mg/ Sodium (Chloride) 250 mls @ 250 mls/hr IV Q24H [facility] Last Admin: 10/18/20 06:17 Dose: 250 mls/hr Documented by: - Exam Quality Assessment: Supplemental Oxygen (6L via NC ), DVT Prophylaxis. No: Urine Catheter General: Alert, Oriented, Cooperative, No Acute Distress HEENT: Pupils Equal, Pupils Reactive, Mucous Membr. Moist/[place] Neck: Supple, Trachea Midline Lungs: Clear to Auscultation, Normal Respiratory Effort, Decreased Breath Sounds Cardiovascular: Regular Rate, Regular Rhythm GI/Abdominal Exam: Normal Bowel Sounds, Soft, Non-Tender, No Distention (Male) Exam: Deferred Back Exam: Normal Inspection, Full Range of Motion Extremities: Normal Inspection, Normal Range of Motion, Non-Tender, No Pedal Edema, Normal Capillary Refill Skin: Warm, Dry, Intact Neurological: No New Focal Deficit Psy/Mental Status: Alert, Normal Affect, Normal Mood - Patient Data Lab Results Last 24 hrs: Laboratory Results - last 24 hr 10/20/20 10/20/20 10/20/20 Range/Units 06:10 06:10 06:10 WBC 11.42 H (4.23-9.07) K/mm3 RBC 4.68 (4.63-6.08) M/mm3 Hgb 13.9 (13.7-17.5) gm/dl Hct 41.9 (40.1-51.0) % MCV 89.5 (79.0-92.2) fl MCH 29.7 (25.7-32.2) pg MCHC 33.2 (32.2-35.5) g/dl RDW Std Deviation 48.9 H (35.1-43.9) fL Plt Count 282 (163-337) K/mm3 MPV 10.4 (9.4-12.3) fl Neut % (Auto) 77.1 H (34.0-67.9) % Lymph % (Auto) 10.2 L (21.8-53.1) % [place] % (Auto) 10.3 (5.3-12.2) % Eos % (Auto) 1.6 (0.8-7.0) Baso % (Auto) 0.2 (0.1-1.2) % Neut # (Auto) 8.80 H (1.78-5.38) K/mm3 Lymph # (Auto) 1.17 L (1.32-3.57) K/mm3 [place] # (Auto) 1.18 H (0.30-0.82) K/mm3 Eos # (Auto) 0.18 (0.04-0.54) K/mm3 Baso # (Auto) 0.02 (0.01-0.08) K/mm3 Manual Slide Review Normal smear D-Dimer, Quantitative 0.41 (0.19-0.50) mg/L Sodium 139 (136-145) mEq/L Potassium 4.2 (3.5-5.1) mEq/L Chloride 106 (98-107) mEq/L Carbon Dioxide 30 (21-32) mEq/L Anion Gap 7.2 (5-15) BUN 17 (7-18) mg/dL Creatinine 1.1 (0.7-1.3) mg/dL Est Cr Clr Drug Dosing 90.14 mL/min Estimated GFR (MDRD) > 60 (>60) mL/min BUN/Creatinine Ratio 15.5 (14-18) Glucose 90 (70-99) mg/dL Calcium 8.1 L (8.5-10.1) mg/dL Magnesium 2.2 (1.8-2.4) mg/dL Total Bilirubin 0.6 (0.2-1.0) mg/dL AST 35 (15-37) U/L ALT 65 H (16-63) U/L Alkaline Phosphatase 34 L (46-116) U/L C-Reactive Protein 5.9 H* (<1.0) mg/dL Total Protein 6.2 L (6.4-8.2) g/dl Albumin 2.2 L (3.4-5.0) g/dl Globulin 4.0 gm/dL Albumin/Globulin Ratio 0.6 L (1-2) Result Diagrams: 10/20/20 06:10 10/20/20 06:10 Bob Results Last 24 hrs: Microbiology 10/14/20 20:38 Aerobic Blood Culture - Preliminary Blood - Venous NO GROWTH AFTER 5 DAYS Anaerobic Blood Culture - Preliminary NO GROWTH AFTER 5 DAYS 10/14/20 20:48 Aerobic Blood Culture - Preliminary Blood - Venous - Lab Draw NO GROWTH AFTER 5 DAYS Anaerobic Blood Culture - Preliminary NO GROWTH AFTER 5 DAYS Sepsis Event Note - Evaluation Sepsis Screening Result: No Definite Risk - Focused Exam Vital Signs: Vital Signs Temp Pulse Resp BP Pulse Ox Pulse Ox 10/20/20 07:20 78 18 119/64 88 L 10/20/20 05:56 94 L 10/20/20 04:46 74 16 124/76 87 L 10/19/20 21:02 98.2 F 73 20 98/78 88 L 10/19/20 19:59 93 L - Problem List & Annotations (1) Hypoxia SNOMED Code(s): 702783388 Code(s): R09.02 - HYPOXEMIA Status: Acute Priority: High Current Visit: Yes (2) Acute respiratory failure due to COVID-19 SNOMED Code(s): 754260654 Code(s): U07.1 - COVID-19; J96.00 - ACUTE RESPIRATORY FAILURE, UNSP W HYPOXIA OR HYPERCAPNIA Status: Acute Priority: High Current Visit: Yes (3) Pneumonia due to COVID-19 virus SNOMED Code(s): 138711326132798898 Code(s): U07.1 - COVID-19; J12.82 - PNEUMONIA DUE TO CORONAVIRUS DISEASE 2019 Status: Acute Priority: High Current Visit: Yes (4) Transaminitis SNOMED Code(s): 919698887, 371280289 Code(s): R74.01 - ELEVATION OF LEVELS OF LIVER TRANSAMINASE LEVELS Status: Acute Priority: Medium Current Visit: Yes - Problem List Review Problem List Initiated/Reviewed/Updated: Yes - My Orders Last 24 Hours: My Active Orders 10/21/20 05:11 CBC WITH AUTO DIFF [HEME] AM CMP [COMPREHENSIVE METABOLIC PN,CMP] [CHEM] AM CRP [C-REACTIVE PROTEIN] [CHEM] AM MAGNESIUM [CHEM] AM 10/22/20 05:11 CBC WITH AUTO DIFF [HEME] AM CRP [C-REACTIVE PROTEIN] [CHEM] AM MAGNESIUM [CHEM] AM - Assessment Assessment:: 10/15/2020 (admitted late 10/14/2020) The patient is an otherwise healthy 50-year-old gentleman who had presented to the emergency department and was subsequently admitted as an inpatient secondary to Covid pneumonia. The patient has been started on remdesivir 200 mg IV initially followed by 100 mg IV for 4 days. I have also started the patient on 9 more days of dexamethasone 6 mg p.o. daily. The patient will also have a azithromycin at 500 mg IV daily. The patient will also be kept on oxygen support to help keep his saturations around 92%. Patient will be kept on telemetry. I have ordered repeat laboratory studies for the morning. The patient will have regular diet as tolerated. He has been encouraged to continue to ambulate. I have also ordered a repeat chest x-ray for Saturday, October 20, 2020. The patient will also be anticoagulated with Lovenox 40 mg subcutaneously daily. He also be fluid resuscitated with the use of lactated Ringer's. The patient should be appropriate for discharge after fourth dose of his remdesivir depending upon his oxygen demands. 10/16/2020 The patient was admitted secondary to COVID-19 and hypoxia. His oxygen will be continued to keep his saturations around 92%. The patient will be kept on telemetry. We will continue his diet as tolerated. I have ordered repeat l aboratory studies for tomorrow. The patient would likely be appropriate for discharge in 1 to 2 days. The patient has mild elevations of his ALT and AST and these have improved from admission. I have ordered repeat comprehensive metabolic panel to ensure that these are trending downward. The patient will also have a repeat C-reactive protein. The patient should be appropriate for discharge once completion of his remdesivir. 10/17/2020 The patient is a 50-year-old gentleman who was admitted to acute hospitalization secondary to acute respiratory failure and Covid pneumonia. The patient has had dexamethasone since admission as well as remdesivir which is scheduled to him tomorrow. Chest x-ray today showed worsening patchy infiltrates. The patient also has oxygen to help keep his saturations around 92%. He is also on a azithromycin and this will be continued. The patient has DVT prophylaxis with the use of Lovenox at 40 mg subcutaneous daily. He will also be continued on IV fluids with Ringer's lactated. The patient has been encouraged to ambulate. Repeat laboratory studies have been ordered. The patient will be appropriate for discharge once his oxygen demands have improved. 10/18/2020 50-year-old male new to the hospital due to acute respiratory failure secondary to Covid pneumonia. He was receiving azithromycin and this was discontinued today after 5 days of treatment. Nursing reported patient is up to 4 pounds and IV fluids had been running. Chest x-ray was obtained to ensure no fluid overload. IV fluids were subsequently discontinued. He was started on 81 mg daily aspirin along with zinc and vitamin D supplementation. Vitamin D level is pending. He continues on high flow oxygen 50 L at 60% FiO2. He will complete his remdesivir treatment today. We will continue 6 mg daily dexamethasone. We will recheck a daily labs tomorrow including a D-dimer. He has been ambulating around the room and utilizing his I-S and Acapella. He reports he prone's every night while sleeping. Denies any history of smoking. Reports symptoms began around 10/08/2020. He will continue hospitalized until he is able to be weaned off of high flow and on too much lower nasal cannula requirements. Goal would be 2 L or less nasal cannula. From a lab standpoint he has been quite stable. There is a mild leukocytosis which is likely secondary to steroid use. He reports he feels better and is breathing has improved. We will continue current treatment plan. 10/19/2020 50-year-old male admitted to the hospital due to acute respiratory failure and hypoxia secondary to Covid pneumonia. He completed 5 days azithromycin and 5 days of remdesivir. He remains on high flow oxygen however we have been able to titrate this down to 45 L with an FiO2 of 55. He states he feels pretty good. He has been utilizing his Acapella and incentive spirometry and ambulating around the room. He has been proning while resting. Today WBC remains elevated 11.48, likely secondary to steroid use. Platelets have increased to 248,000. Liver enzymes continue to be improved with AST 40, ALT of 70, alkaline phosphatase 44. CRP today is 4.1. Albumin remains low at 2.3. Otherwise patient is doing quite well. Plan is to continue to wean oxygen as tolerated. Patient will likely need to discharge on oxygen however we will attempt to wean him down to 1 to 2 L via nasal cannula. We will continue dexamethasone for 10 days. Continue current treatment plan. - Plan Plan:: Hypoxia Acute respiratory failure due to COVID-19 Pneumonia due to COVID-19 virus Transaminitis, improving * Completed 5 days of azithromycin * Completed Remdesivir * Dexamethasone - day 10/27 * IS/Acapella * Consult RT * O2 as needed with goal saturations of 88-95% * Attempt to wean high flow oxygen as tolerated * 81 mg daily ASA * Supplement zinc * Vitamin D supplementation * Pepcid 20mg BID * Lovenox 40mg daily * Prone whenever able * Ambulate around room * BID labs * Telemetry * Continuous pulse oximetry * Airborne and contact precautions Code status: Full code PCP: None DVT prophylaxis: Lovenox Disposition: Patient admitted for management of his respiratory failure due to COVID-19 pneumonia. Patient will remain admitted due to increased oxygen demand. Goal oxygen use prior to discharge would be 1-2L but would consider 3- 4L possibly. <Stu Mcwilliams Jr - Last Filed: 10/20/20 16:17> - Patient Data Vitals - Most Recent: Last Vital Signs Temp 98.2 F 10/20/20 12:03 Pulse 82 10/20/20 12:03 Resp 18 10/20/20 12:03 BP 110/74 10/20/20 12:03 Pulse Ox 89 L 10/20/20 14:41 I&O - Last 24 Hours: Intake & Output 10/20/20 10/20/20 10/20/20 06:59 14:59 22:59 Intake Total 800 240 Output Total 2000 Balance -1200 240 Lab Results Last 24 Hours: Laboratory Results - last 24 hr 10/20/20 10/20/20 10/20/20 Range/Units 06:10 06:10 06:10 WBC 11.42 H (4.23-9.07) K/mm3 RBC 4.68 (4.63-6.08) M/mm3 Hgb 13.9 (13.7-17.5) gm/dl Hct 41.9 (40.1-51.0) % MCV 89.5 (79.0-92.2) fl MCH 29.7 (25.7-32.2) pg MCHC 33.2 (32.2-35.5) g/dl RDW Std Deviation 48.9 H (35.1-43.9) fL Plt Count 282 (163-337) K/mm3 MPV 10.4 (9.4-12.3) fl Neut % (Auto) 77.1 H (34.0-67.9) % Lymph % (Auto) 10.2 L (21.8-53.1) % [place] % (Auto) 10.3 (5.3-12.2) % Eos % (Auto) 1.6 (0.8-7.0) Baso % (Auto) 0.2 (0.1-1.2) % Neut # (Auto) 8.80 H (1.78-5.38) K/mm3 Lymph # (Auto) 1.17 L (1.32-3.57) K/mm3 [place] # (Auto) 1.18 H (0.30-0.82) K/mm3 Eos # (Auto) 0.18 (0.04-0.54) K/mm3 Baso # (Auto) 0.02 (0.01-0.08) K/mm3 Manual Slide Review Normal smear D-Dimer, Quantitative 0.41 (0.19-0.50) mg/L Sodium 139 (136-145) mEq/L Potassium 4.2 (3.5-5.1) mEq/L Chloride 106 (98-107) mEq/L Carbon Dioxide 30 (21-32) mEq/L Anion Gap 7.2 (5-15) BUN 17 (7-18) mg/dL Creatinine 1.1 (0.7-1.3) mg/dL Est Cr Clr Drug Dosing 90.14 mL/min Estimated GFR (MDRD) > 60 (>60) mL/min BUN/Creatinine Ratio 15.5 (14-18) Glucose 90 (70-99) mg/dL Calcium 8.1 L (8.5-10.1) mg/dL Magnesium 2.2 (1.8-2.4) mg/dL Total Bilirubin 0.6 (0.2-1.0) mg/dL AST 35 (15-37) U/L ALT 65 H (16-63) U/L Alkaline Phosphatase 34 L (46-116) U/L C-Reactive Protein 5.9 H* (<1.0) mg/dL Total Protein 6.2 L (6.4-8.2) g/dl Albumin 2.2 L (3.4-5.0) g/dl Globulin 4.0 gm/dL Albumin/Globulin Ratio 0.6 L (1-2) Bob Results Last 24 Hours: Microbiology 10/14/20 20:38 Aerobic Blood Culture - Preliminary Blood - Venous NO GROWTH AFTER 5 DAYS Anaerobic Blood Culture - Preliminary NO GROWTH AFTER 5 DAYS 10/14/20 20:48 Aerobic Blood Culture - Preliminary Blood - Venous - Lab Draw NO GROWTH AFTER 5 DAYS Anaerobic Blood Culture - Preliminary NO GROWTH AFTER 5 DAYS Med Orders - Current: Current Medications Acetaminophen (Acetaminophen 325 Mg Tab) 650 mg PO Q4H PRN PRN Reason: Pain (Mild 1-3)/fever Aspirin (Aspirin 81 Mg Tab.Chew) 81 mg PO DAILY [facility] Last Admin: 10/20/20 08:27 Dose: 81 mg Documented by: Cholecalciferol (Cholecalciferol (Vitamin D3) 5,000 Unit Cap) 5,000 unit PO DAILY [facility] Last Admin: 10/20/20 08:27 Dose: 5,000 unit Documented by: Dexamethasone (Dexamethasone 4 Mg Tab) 6 mg PO DAILY [facility] Stop: 10/24/20 09:01 Last Admin: 10/20/20 08:27 Dose: 6 mg Documented by: Enoxaparin Sodium (Enoxaparin 40 Mg/0.4 Ml Syringe) 40 mg SUBCUT DAILY [facility] Last Admin: 10/20/20 08:27 Dose: 40 mg Documented by: Famotidine (Famotidine 20 Mg Tab) 20 mg PO BID [facility] Last Admin: 10/20/20 08:27 Dose: 20 mg Documented by: Ondansetron HCl (Ondansetron 4 Mg Tab.Dis) 4 mg PO Q4H PRN PRN Reason: nausea, able to take PO Oxycodone HCl (Oxycodone 5 Mg Tab) 5 mg PO Q4H PRN PRN Reason: Pain (moderate 4-6) Temazepam (Temazepam 7.5 Mg Cap) 7.5 mg PO BEDTIME PRN PRN Reason: Sleep Zinc Sulfate (Zinc Sulfate 220 Mg Cap) 220 mg PO DAILY [facility] Last Admin: 10/20/20 08:28 Dose: 220 mg Documented by: Discontinued Medications Dexamethasone (Dexamethasone 4 Mg/Ml 5 Ml Mdv) 6 mg IV ONETIME ONE Stop: 10/14/20 21:54 Last Admin: 10/14/20 22:14 Dose: 6 mg Documented by: Lactated Ringer's (Ringers, Lactated) 1,000 mls @ 75 mls/hr IV ASDIRECTED [facility] Last Admin: 10/17/20 19:50 Dose: 75 mls/hr Documented by: Remdesivir 200 mg/ Sodium (Chloride) 250 mls @ 250 mls/hr IV ONETIME ONE Stop: 10/14/20 21:54 Last Admin: 10/14/20 22:14 Dose: 250 mls/hr Documented by: Remdesivir 100 mg/ Sodium (Chloride) 100 mls @ 100 mls/hr IV Q24H [facility] Stop: 10/18/20 21:59 Last Admin: 10/18/20 20:20 Dose: 100 mls/hr Documented by: Azithromycin 500 mg/ Sodium (Chloride) 250 mls @ 250 mls/hr IV Q24H [facility] Last Admin: 10/18/20 06:17 Dose: 250 mls/hr Documented by: - Patient Data Lab Results Last 24 hrs: Laboratory Results - last 24 hr 10/20/20 10/20/20 10/20/20 Range/Units 06:10 06:10 06:10 WBC 11.42 H (4.23-9.07) K/mm3 RBC 4.68 (4.63-6.08) M/mm3 Hgb 13.9 (13.7-17.5) gm/dl Hct 41.9 (40.1-51.0) % MCV 89.5 (79.0-92.2) fl MCH 29.7 (25.7-32.2) pg MCHC 33.2 (32.2-35.5) g/dl RDW Std Deviation 48.9 H (35.1-43.9) fL Plt Count 282 (163-337) K/mm3 MPV 10.4 (9.4-12.3) fl Neut % (Auto) 77.1 H (34.0-67.9) % Lymph % (Auto) 10.2 L (21.8-53.1) % [place] % (Auto) 10.3 (5.3-12.2) % Eos % (Auto) 1.6 (0.8-7.0) Baso % (Auto) 0.2 (0.1-1.2) % Neut # (Auto) 8.80 H (1.78-5.38) K/mm3 Lymph # (Auto) 1.17 L (1.32-3.57) K/mm3 [place] # (Auto) 1.18 H (0.30-0.82) K/mm3 Eos # (Auto) 0.18 (0.04-0.54) K/mm3 Baso # (Auto) 0.02 (0.01-0.08) K/mm3 Manual Slide Review Normal smear D-Dimer, Quantitative 0.41 (0.19-0.50) mg/L Sodium 139 (136-145) mEq/L Potassium 4.2 (3.5-5.1) mEq/L Chloride 106 (98-107) mEq/L Carbon Dioxide 30 (21-32) mEq/L Anion Gap 7.2 (5-15) BUN 17 (7-18) mg/dL Creatinine 1.1 (0.7-1.3) mg/dL Est Cr Clr Drug Dosing 90.14 mL/min Estimated GFR (MDRD) > 60 (>60) mL/min BUN/Creatinine Ratio 15.5 (14-18) Glucose 90 (70-99) mg/dL Calcium 8.1 L (8.5-10.1) mg/dL Magnesium 2.2 (1.8-2.4) mg/dL Total Bilirubin 0.6 (0.2-1.0) mg/dL AST 35 (15-37) U/L ALT 65 H (16-63) U/L Alkaline Phosphatase 34 L (46-116) U/L C-Reactive Protein 5.9 H* (<1.0) mg/dL Total Protein 6.2 L (6.4-8.2) g/dl Albumin 2.2 L (3.4-5.0) g/dl Globulin 4.0 gm/dL Albumin/Globulin Ratio 0.6 L (1-2) Result Diagrams: 10/20/20 06:10 10/20/20 06:10 Bob Results Last 24 hrs: Microbiology 10/14/20 20:38 Aerobic Blood Culture - Preliminary Blood - Venous NO GROWTH AFTER 5 DAYS Anaerobic Blood Culture - Preliminary NO GROWTH AFTER 5 DAYS 10/14/20 20:48 Aerobic Blood Culture - Preliminary Blood - Venous - Lab Draw NO GROWTH AFTER 5 DAYS Anaerobic Blood Culture - Preliminary NO GROWTH AFTER 5 DAYS Sepsis Event Note - Focused Exam Vital Signs: Vital Signs Temp Pulse Resp BP Pulse Ox Pulse Ox Pulse Ox 10/20/20 14:41 89 L 10/20/20 12:03 98.2 F 82 18 110/74 94 L 10/20/20 10:10 92 L 10/20/20 09:16 94 L 10/20/20 07:20 78 18 119/64 88 L 10/20/20 05:56 94 L 10/20/20 04:46 74 16 124/76 87 L - Plan Plan:: Case personally precepted. Agree with exam, assessment and plan. -Dr. Hammad Parsons Jr., DO
[2020-10-20] MEDS: Cholecalciferol (Vitamin D3) 5,000 UNIT Cap PO SCH (08:27)
[2020-10-20] MEDS: Famotidine 20 MG Tab PO SCH ×2 (08:27→21:03)
[2020-10-20] MEDS: Dexamethasone 4 MG Tab PO SCH (08:27)
[2020-10-20] MEDS: Aspirin 81 MG Tab.Chew PO SCH (08:27)
[2020-10-20] MEDS: Enoxaparin 40 MG/0.4 ML Syringe SUBCUT SCH (08:27)
[2020-10-20] MEDS: Zinc Sulfate 220 MG Cap PO SCH (08:28)
--- NOTE | 2020-10-21 07:46 | PCM.PN ---
<Ethan Nelson - Last Filed: 10/21/20 11:26> - General Info Date of Service: 10/21/20 Admission Dx/Problem (Free Text): Admission Diagnosis/Problem Admission Diagnosis/Problem Hypoxia, COVID-19 PNA Functional Status: Reports: Pain Controlled, Tolerating Diet, Ambulating, Urinating, Incentive Spirometry, Other (Acapella ). Denies: New Symptoms - Review of Systems General: Reports: No Symptoms. Denies: Fever, Weakness, Fatigue, Malaise, Chills HEENT: Reports: No Symptoms. Denies: Headaches, Sore Throat Pulmonary: Reports: Shortness of Breath, Cough, Sputum. Denies: Pleuritic Chest Pain, Wheezing Cardiovascular: Reports: No Symptoms, Dyspnea on Exertion. Denies: Chest Pain, Palpitations, Edema, Lightheadedness Gastrointestinal: Reports: No Symptoms. Denies: Abdominal Pain, Constipation, Diarrhea, Nausea, Vomiting Genitourinary: Reports: No Symptoms. Denies: Pain Musculoskeletal: Reports: No Symptoms Skin: Reports: No Symptoms. Denies: Cyanosis Neurological: Reports: No Symptoms. Denies: Confusion, Dizziness, Headache, Numbness, Pre-Existing Deficit, Seizure, Syncope, Tingling, Difficulty Walking, Weakness, Gait Disturbance Psychiatric: Reports: No Symptoms - Patient Data Vitals - Most Recent: Last Vital Signs Temp 98.2 F 10/20/20 21:02 Pulse 70 10/21/20 05:19 Resp 20 10/21/20 05:19 BP 102/72 10/21/20 05:19 Pulse Ox 98 10/21/20 06:03 Weight - Most Recent: 266 lb 14.4 oz I&O - Last 24 Hours: Intake & Output 10/20/20 10/21/20 10/21/20 22:59 06:59 14:59 Intake Total 750 800 Output Total 1000 1900 Balance -250 -1100 Bob Results Last 24 Hours: Microbiology 10/14/20 20:38 Aerobic Blood Culture - Preliminary Blood - Venous NO GROWTH AFTER 6 DAYS Anaerobic Blood Culture - Preliminary NO GROWTH AFTER 6 DAYS 10/14/20 20:48 Aerobic Blood Culture - Preliminary Blood - Venous - Lab Draw NO GROWTH AFTER 6 DAYS Anaerobic Blood Culture - Preliminary NO GROWTH AFTER 6 DAYS Med Orders - Current: Current Medications Acetaminophen (Acetaminophen 325 Mg Tab) 650 mg PO Q4H PRN PRN Reason: Pain (Mild 1-3)/fever Aspirin (Aspirin 81 Mg Tab.Chew) 81 mg PO DAILY [facility] Last Admin: 10/20/20 08:27 Dose: 81 mg Documented by: Cholecalciferol (Cholecalciferol (Vitamin D3) 5,000 Unit Cap) 5,000 unit PO DAILY [facility] Last Admin: 10/20/20 08:27 Dose: 5,000 unit Documented by: Dexamethasone (Dexamethasone 4 Mg Tab) 6 mg PO DAILY [facility] Stop: 10/24/20 09:01 Last Admin: 10/20/20 08:27 Dose: 6 mg Documented by: Enoxaparin Sodium (Enoxaparin 40 Mg/0.4 Ml Syringe) 40 mg SUBCUT DAILY [facility] Last Admin: 10/20/20 08:27 Dose: 40 mg Documented by: Famotidine (Famotidine 20 Mg Tab) 20 mg PO BID [facility] Last Admin: 10/20/20 21:03 Dose: 20 mg Documented by: Ondansetron HCl (Ondansetron 4 Mg Tab.Dis) 4 mg PO Q4H PRN PRN Reason: nausea, able to take PO Oxycodone HCl (Oxycodone 5 Mg Tab) 5 mg PO Q4H PRN PRN Reason: Pain (moderate 4-6) Temazepam (Temazepam 7.5 Mg Cap) 7.5 mg PO BEDTIME PRN PRN Reason: Sleep Zinc Sulfate (Zinc Sulfate 220 Mg Cap) 220 mg PO DAILY [facility] Last Admin: 10/20/20 08:28 Dose: 220 mg Documented by: Discontinued Medications Dexamethasone (Dexamethasone 4 Mg/Ml 5 Ml Mdv) 6 mg IV ONETIME ONE Stop: 10/14/20 21:54 Last Admin: 10/14/20 22:14 Dose: 6 mg Documented by: Lactated Ringer's (Ringers, Lactated) 1,000 mls @ 75 mls/hr IV ASDIRECTED [facility] Last Admin: 10/17/20 19:50 Dose: 75 mls/hr Documented by: Remdesivir 200 mg/ Sodium (Chloride) 250 mls @ 250 mls/hr IV ONETIME ONE Stop: 10/14/20 21:54 Last Admin: 10/14/20 22:14 Dose: 250 mls/hr Documented by: Remdesivir 100 mg/ Sodium (Chloride) 100 mls @ 100 mls/hr IV Q24H [facility] Stop: 10/18/20 21:59 Last Admin: 10/18/20 20:20 Dose: 100 mls/hr Documented by: Azithromycin 500 mg/ Sodium (Chloride) 250 mls @ 250 mls/hr IV Q24H [facility] Last Admin: 10/18/20 06:17 Dose: 250 mls/hr Documented by: - Exam Quality Assessment: Supplemental Oxygen (5L), DVT Prophylaxis. No: Urine Catheter General: Alert, Oriented, Cooperative, No Acute Distress HEENT: Pupils Equal, Pupils Reactive, Mucous Membr. Moist/Levan Neck: Supple, Trachea Midline Lungs: Clear to Auscultation, Normal Respiratory Effort, Decreased Breath Sounds Cardiovascular: Regular Rate, Regular Rhythm GI/Abdominal Exam: Normal Bowel Sounds, Soft, Non-Tender, No Distention (Male) Exam: Deferred Back Exam: Normal Inspection, Full Range of Motion Extremities: Normal Inspection, Normal Range of Motion, Non-Tender, No Pedal Edema, Normal Capillary Refill Skin: Warm, Dry, Intact Neurological: No New Focal Deficit Psy/Mental Status: Alert, Normal Affect, Normal Mood - Patient Data Result Diagrams: 10/20/20 06:10 10/20/20 06:10 Bob Results Last 24 hrs: Microbiology 10/14/20 20:38 Aerobic Blood Culture - Preliminary Blood - Venous NO GROWTH AFTER 6 DAYS Anaerobic Blood Culture - Preliminary NO GROWTH AFTER 6 DAYS 10/14/20 20:48 Aerobic Blood Culture - Preliminary Blood - Venous - Lab Draw NO GROWTH AFTER 6 DAYS Anaerobic Blood Culture - Preliminary NO GROWTH AFTER 6 DAYS Sepsis Event Note - Evaluation Sepsis Screening Result: No Definite Risk - Focused Exam Vital Signs: Vital Signs Temp Pulse Resp BP Pulse Ox Pulse Ox 10/21/20 06:03 98 10/21/20 05:19 70 20 102/72 89 L 10/20/20 21:02 98.2 F 79 20 110/75 94 L 10/20/20 20:27 89 L - Problem List & Annotations (1) Hypoxia SNOMED Code(s): 965430350 Code(s): R09.02 - HYPOXEMIA Status: Acute Priority: High Current Visit: Yes (2) Acute respiratory failure due to COVID-19 SNOMED Code(s): 325150667 Code(s): U07.1 - COVID-19; J96.00 - ACUTE RESPIRATORY FAILURE, UNSP W HYPOXIA OR HYPERCAPNIA Status: Acute Priority: High Current Visit: Yes (3) Pneumonia due to COVID-19 virus SNOMED Code(s): 685288159368846390 Code(s): U07.1 - COVID-19; J12.82 - PNEUMONIA DUE TO CORONAVIRUS DISEASE 2019 Status: Acute Priority: High Current Visit: Yes (4) Transaminitis SNOMED Code(s): 994780503, 429918296 Code(s): R74.01 - ELEVATION OF LEVELS OF LIVER TRANSAMINASE LEVELS Status: Acute Priority: Medium Current Visit: Yes - Problem List Review Problem List Initiated/Reviewed/Updated: Yes - My Orders Last 24 Hours: My Active Orders 10/22/20 05:11 CBC WITH AUTO DIFF [HEME] Q48H 10/22/20 11:47 COMPREHENSIVE METABOLIC PN,CMP [CHEM] Q48H 10/22/20 11:48 CRP [C-REACTIVE PROTEIN] [CHEM] Q48H DD [D-DIMER QUANTITATIVE] [COAG] Q48H 10/24/20 05:11 CBC WITH AUTO DIFF [HEME] Q48H 10/24/20 11:47 COMPREHENSIVE METABOLIC PN,CMP [CHEM] Q48H 10/24/20 11:48 CRP [C-REACTIVE PROTEIN] [CHEM] Q48H DD [D-DIMER QUANTITATIVE] [COAG] Q48H 10/26/20 05:11 CBC WITH AUTO DIFF [HEME] Q48H 10/26/20 11:47 COMPREHENSIVE METABOLIC PN,CMP [CHEM] Q48H 10/26/20 11:48 CRP [C-REACTIVE PROTEIN] [CHEM] Q48H DD [D-DIMER QUANTITATIVE] [COAG] Q48H - Assessment Assessment:: 10/15/2020 (admitted late 10/14/2020) The patient is an otherwise healthy 50-year-old gentleman who had presented to the emergency department and was subsequently admitted as an inpatient secondary to Covid pneumonia. The patient has been started on remdesivir 200 mg IV initially followed by 100 mg IV for 4 days. I have also started the patient on 9 more days of dexamethasone 6 mg p.o. daily. The patient will also have a azithromycin at 500 mg IV daily. The patient will also be kept on oxygen support to help keep his saturations around 92%. Patient will be kept on telemetry. I have ordered repeat laboratory studies for the morning. The patient will have regular diet as tolerated. He has been encouraged to continue to ambulate. I have also ordered a repeat chest x-ray for Tuesday, October 20, 2020. The patient will also be anticoagulated with Lovenox 40 mg subcutaneously daily. He also be fluid resuscitated with the use of lactated Ringer's. The patient should be appropriate for discharge after fourth dose of his remdesivir depending upon his oxygen demands. 10/16/2020 The patient was admitted secondary to COVID-19 and hypoxia. His oxygen will be continued to keep his saturations around 92%. The patient will be kept on telemetry. We will continue his diet as tolerated. I have ordered repeat laboratory studies for tomorrow. The patient would likely be appropriate for discharge in 1 to 2 days. The patient has mild elevations of his ALT and AST and these have improved from admission. I have ordered repeat comprehensive metabolic panel to ensure that these are trending downward. The patient will also have a repeat C-reactive protein. The patient should be appropriate for discharge once completion of his remdesivir. 10/17/2020 The patient is a 50-year-old gentleman who was admitted to acute hospitalization secondary to acute respiratory failure and Covid pneumonia. The patient has had dexamethasone since admission as well as remdesivir which is scheduled to him tomorrow. Chest x-ray today showed worsening patchy infiltrates. The patient also has oxygen to help keep his saturations around 92%. He is also on a azithromycin and this will be continued. The patient has DVT prophylaxis with the use of Lovenox at 40 mg subcutaneous daily. He will also be continued on IV fluids with Ringer's lactated. The patient has been encouraged to ambulate. Repeat laboratory studies have been ordered. The patient will be appropriate for discharge once his oxygen demands have improved. 10/18/2020 50-year-old male new to the hospital due to acute respiratory failure secondary to Covid pneumonia. He was receiving azithromycin and this was discontinued today after 5 days of treatment. Nursing reported patient is up to 4 pounds and IV fluids had been running. Chest x-ray was obtained to ensure no fluid overload. IV fluids were subsequently discontinued. He was started on 81 mg daily aspirin along with zinc and vitamin D supplementation. Vitamin D level is pending. He continues on high flow oxygen 50 L at 60% FiO2. He will complete his remdesivir treatment today. We will continue 6 mg daily dexamethasone. We will recheck a daily labs tomorrow including a D-dimer. He has been ambulating around the room and utilizing his I-S and Acapella. He reports he prone's every night while sleeping. Denies any history of smoking. Reports symptoms began around 10/08/2020. He will continue hospitalized until he is able to be weaned off of high flow and on too much lower nasal cannula requirements. Goal would be 2 L or less nasal cannula. From a lab standpoint he has been quite stable. There is a mild leukocytosis which is likely secondary to steroid use. He reports he feels better and is breathing has improved. We will continue current treatment plan. 10/19/2020 50-year-old male admitted to the hospital due to acute respiratory failure and hypoxia secondary to Covid pneumonia. He completed 5 days azithromycin and 5 days of remdesivir. He remains on high flow oxygen however we have been able to titrate this down to 45 L with an FiO2 of 55. He states he feels pretty good. He has been utilizing his Acapella and incentive spirometry and ambulating around the room. He has been proning while resting. Today WBC remains elevated 11.48, likely secondary to steroid use. Platelets have increased to 248,000. Liver enzymes continue to be improved with AST 40, ALT of 70, alkaline phosphatase 44. CRP today is 4.1. Albumin remains low at 2.3. Otherwise patient is doing quite well. Plan is to continue to wean oxygen as tolerated. Patient will likely need to discharge on oxygen however we will attempt to wean him down to 1 to 2 L via nasal cannula. We will continue dexamethasone for 10 days. Continue current treatment plan. 10/20/2020 42-year-old male admitted due to acute respiratory failure and hypoxia secondary to Covid pneumonia. He continues to do well and is down to 6 L of oxygen via nasal cannula. Saturations have been in the low 90s. Continues to use incentive spirometry and Acapella and has been ambulating around the room. He has been proning at night. Continues to have mild leukocytosis at 11.42 likely secondary to steroid use. Electrolytes have been stable with a sodium of 139, potassium 4.2, magnesium of 2.2. BUN is down to 17 and creatinine 1.1 with a GFR greater than 60. Liver enzymes continue to improve with a AST of 35, ALT of 65, and alkaline phosphatase of 34. CRP is 5.9. D-dimer was checked today as well was 0.41.Based on continued stability of labs we will switch to every 48 hour labs. Patient reports continued cough and sputum but says overall he is feeling pretty good. We discussed discharge plan however would like to see him down to 1 to 2 L but will consider discharge at 3 to 4 L if he remains stable. Hopeful for discharge this weekend pending continued improvement. 10/21/2020 50-year-old male who continues to be hospitalized due to COVID-19 pneumonia with hypoxia and acute respiratory failure. He continues to do well and is down to 3 L of oxygen currently. We are continuing to wean with a goal of 1 to 2 L of oxygen prior to discharge. No labs were obtained today but we will recheck labs tomorrow. Otherwise he states he feels "excellent." Vital signs have been stable. He continues utilize his incentive spirometry and Acapella. He has been walking around the room and proning at night and when in bed. Hopeful for discharge tomorrow pending continued improvement. - Plan Plan:: Hypoxia Acute respiratory failure due to COVID-19 Pneumonia due to COVID-19 virus Transaminitis, improving * Completed 5 days of azithromycin * Completed 5 days of Remdesivir * Dexamethasone - day 12/27 * IS/Acapella * Consult RT * O2 as needed with goal saturations of 88-95% * Attempt to wean high flow oxygen as tolerated * 81 mg daily ASA * Supplement zinc * Vitamin D supplementation * Pepcid 20mg BID * Lovenox 40mg daily * Prone whenever able * Ambulate around room * Q48h labs * Telemetry * Continuous pulse oximetry * Airborne and contact precautions Code status: Full code PCP: None DVT prophylaxis: Lovenox Disposition: Patient admitted for management of his respiratory failure due to COVID-19 pneumonia. Patient will remain admitted due to increased oxygen demand. Goal oxygen use prior to discharge would be 1-2L but would consider 3- 4L possibly. <Stu Mcwilliams Jr - Last Filed: 10/21/20 15:07> - Patient Data Vitals - Most Recent: Last Vital Signs Temp 98.1 F 10/21/20 11:30 Pulse 81 10/21/20 11:30 Resp 18 10/21/20 11:30 BP 130/68 10/21/20 11:30 Pulse Ox 91 L 10/21/20 11:30 I&O - Last 24 Hours: Intake & Output 10/21/20 10/21/20 10/21/20 06:59 14:59 22:59 Intake Total 800 480 Output Total 1900 Balance -1100 480 Bob Results Last 24 Hours: Microbiology 10/14/20 20:38 Aerobic Blood Culture - Preliminary Blood - Venous NO GROWTH AFTER 6 DAYS Anaerobic Blood Culture - Preliminary NO GROWTH AFTER 6 DAYS 10/14/20 20:48 Aerobic Blood Culture - Preliminary Blood - Venous - Lab Draw NO GROWTH AFTER 6 DAYS Anaerobic Blood Culture - Preliminary NO GROWTH AFTER 6 DAYS Med Orders - Current: Current Medications Acetaminophen (Acetaminophen 325 Mg Tab) 650 mg PO Q4H PRN PRN Reason: Pain (Mild 1-3)/fever Aspirin (Aspirin 81 Mg Tab.Chew) 81 mg PO DAILY [facility] Last Admin: 10/21/20 09:06 Dose: 81 mg Documented by: Cholecalciferol (Cholecalciferol (Vitamin D3) 5,000 Unit Cap) 5,000 unit PO DAILY [facility] Last Admin: 10/21/20 09:05 Dose: 5,000 unit Documented by: Dexamethasone (Dexamethasone 4 Mg Tab) 6 mg PO DAILY [facility] Stop: 10/24/20 09:01 Last Admin: 10/21/20 09:06 Dose: 6 mg Documented by: Enoxaparin Sodium (Enoxaparin 40 Mg/0.4 Ml Syringe) 40 mg SUBCUT DAILY [facility] Last Admin: 10/21/20 09:08 Dose: 40 mg Documented by: Famotidine (Famotidine 20 Mg Tab) 20 mg PO BID [facility] Last Admin: 10/21/20 09:07 Dose: 20 mg Documented by: Ondansetron HCl (Ondansetron 4 Mg Tab.Dis) 4 mg PO Q4H PRN PRN Reason: nausea, able to take PO Oxycodone HCl (Oxycodone 5 Mg Tab) 5 mg PO Q4H PRN PRN Reason: Pain (moderate 4-6) Temazepam (Temazepam 7.5 Mg Cap) 7.5 mg PO BEDTIME PRN PRN Reason: Sleep Zinc Sulfate (Zinc Sulfate 220 Mg Cap) 220 mg PO DAILY [facility] Last Admin: 10/21/20 09:06 Dose: 220 mg Documented by: Discontinued Medications Dexamethasone (Dexamethasone 4 Mg/Ml 5 Ml Mdv) 6 mg IV ONETIME ONE Stop: 10/14/20 21:54 Last Admin: 10/14/20 22:14 Dose: 6 mg Documented by: Lactated Ringer's (Ringers, Lactated) 1,000 mls @ 75 mls/hr IV ASDIRECTED [facility] Last Admin: 10/17/20 19:50 Dose: 75 mls/hr Documented by: Remdesivir 200 mg/ Sodium (Chloride) 250 mls @ 250 mls/hr IV ONETIME ONE Stop: 10/14/20 21:54 Last Admin: 10/14/20 22:14 Dose: 250 mls/hr Documented by: Remdesivir 100 mg/ Sodium (Chloride) 100 mls @ 100 mls/hr IV Q24H [facility] Stop: 10/18/20 21:59 Last Admin: 10/18/20 20:20 Dose: 100 mls/hr Documented by: Azithromycin 500 mg/ Sodium (Chloride) 250 mls @ 250 mls/hr IV Q24H [facility] Last Admin: 10/18/20 06:17 Dose: 250 mls/hr Documented by: - Patient Data Result Diagrams: 10/20/20 06:10 10/20/20 06:10 Bob Results Last 24 hrs: Microbiology 10/14/20 20:38 Aerobic Blood Culture - Preliminary Blood - Venous NO GROWTH AFTER 6 DAYS Anaerobic Blood Culture - Preliminary NO GROWTH AFTER 6 DAYS 10/14/20 20:48 Aerobic Blood Culture - Preliminary Blood - Venous - Lab Draw NO GROWTH AFTER 6 DAYS Anaerobic Blood Culture - Preliminary NO GROWTH AFTER 6 DAYS Sepsis Event Note - Focused Exam Vital Signs: Vital Signs Temp Pulse Resp BP Pulse Ox Pulse Ox 10/21/20 11:30 98.1 F 81 18 130/68 91 L 10/21/20 09:50 90 L 10/21/20 09:03 98.2 F 97 20 117/69 89 L 10/21/20 06:03 98 10/21/20 05:19 70 20 102/72 89 L - Plan Plan:: Case personally preceptored and reviewed. Agree with evaluation, assessment and plan. Dr. Hammad Parsons Jr., DO
[2020-10-21] MEDS: Cholecalciferol (Vitamin D3) 5,000 UNIT Cap PO SCH (09:05)
[2020-10-21] MEDS: Zinc Sulfate 220 MG Cap PO SCH (09:06)
[2020-10-21] MEDS: Dexamethasone 4 MG Tab PO SCH (09:06)
[2020-10-21] MEDS: Aspirin 81 MG Tab.Chew PO SCH (09:06)
[2020-10-21] MEDS: Famotidine 20 MG Tab PO SCH ×2 (09:07→21:08)
[2020-10-21] MEDS: Enoxaparin 40 MG/0.4 ML Syringe SUBCUT SCH (09:08)
--- NOTE | 2020-10-21 13:14 | PCM.DCSUM1 ---
<Stu Mcwilliams Jr - Last Filed: 10/21/20 15:03> Discharge Summary - Discharge Data Discharge Disposition: Home, Self-Care 01 Condition: Good - Referral to Home Health Primary Care Physician: Sabino Pretty PA-C - Patient Summary/Data Consults: Consultations 10/18/20 12:28 Consult to Respiratory Therapy [Respiratory Care Assess and Treatment] [CONS] Routine - Discharge Plan Prescriptions/Med Rec: Aspirin 81 mg PO DAILY #30 tab.chew Cholecalciferol (Vitamin D3) [Vitamin D3] 1,000 unit PO DAILY #30 capsule Zinc Sulfate [Zincate] 220 mg PO DAILY #30 cap Home Medications: Home Meds Aspirin 81 mg PO DAILY #30 tab.chew 10/21/20 [Rx] Cholecalciferol (Vitamin D3) [Vitamin D3] 1,000 unit PO DAILY #30 capsule 10/21/20 [Rx] Zinc Sulfate [Zincate] 220 mg PO DAILY #30 cap 10/21/20 [Rx] Patient Handouts: COVID-19 Frequently Asked Questions, COVID-19, How to Use an Incentive Spirometer, COVID-19: How to Protect Yourself and Others - CDC, Sepsis, Self Care, Adult Referrals: Sabino Pretty PA-C [Primary Care Provider] - 11/02/20 12:00 pm (check in 11:40) - Discharge Summary/Plan Comment Discharge Summary/Plan Comment: Case personally preceptored and reviewed. Agree with evaluation, assessment and plan. Dr. Hammad Parsons Jr., DO - Patient Data Vitals - Most Recent: Last Vital Signs Temp 98.1 F 10/21/20 11:30 Pulse 81 10/21/20 11:30 Resp 18 10/21/20 11:30 BP 130/68 10/21/20 11:30 Pulse Ox 91 L 10/21/20 11:30 I&O - Last 24 hours: Intake & Output 10/21/20 10/21/20 10/21/20 06:59 14:59 22:59 Intake Total 800 480 Output Total 1900 Balance -1100 480 DORIS Results - Last 24 hrs: Microbiology 10/14/20 20:38 Aerobic Blood Culture - Preliminary Blood - Venous NO GROWTH AFTER 6 DAYS Anaerobic Blood Culture - Preliminary NO GROWTH AFTER 6 DAYS 10/14/20 20:48 Aerobic Blood Culture - Preliminary Blood - Venous - Lab Draw NO GROWTH AFTER 6 DAYS Anaerobic Blood Culture - Preliminary NO GROWTH AFTER 6 DAYS Med Orders - Current: Current Medications Acetaminophen (Acetaminophen 325 Mg Tab) 650 mg PO Q4H PRN PRN Reason: Pain (Mild 1-3)/fever Aspirin (Aspirin 81 Mg Tab.Chew) 81 mg PO DAILY [facility] Last Admin: 10/21/20 09:06 Dose: 81 mg Documented by: Cholecalciferol (Cholecalciferol (Vitamin D3) 5,000 Unit Cap) 5,000 unit PO DAILY [facility] Last Admin: 10/21/20 09:05 Dose: 5,000 unit Documented by: Dexamethasone (Dexamethasone 4 Mg Tab) 6 mg PO DAILY [facility] Stop: 10/24/20 09:01 Last Admin: 10/21/20 09:06 Dose: 6 mg Documented by: Enoxaparin Sodium (Enoxaparin 40 Mg/0.4 Ml Syringe) 40 mg SUBCUT DAILY [facility] Last Admin: 10/21/20 09:08 Dose: 40 mg Documented by: Famotidine (Famotidine 20 Mg Tab) 20 mg PO BID [facility] Last Admin: 10/21/20 09:07 Dose: 20 mg Documented by: Ondansetron HCl (Ondansetron 4 Mg Tab.Dis) 4 mg PO Q4H PRN PRN Reason: nausea, able to take PO Oxycodone HCl (Oxycodone 5 Mg Tab) 5 mg PO Q4H PRN PRN Reason: Pain (moderate 4-6) Temazepam (Temazepam 7.5 Mg Cap) 7.5 mg PO BEDTIME PRN PRN Reason: Sleep Zinc Sulfate (Zinc Sulfate 220 Mg Cap) 220 mg PO DAILY [facility] Last Admin: 10/21/20 09:06 Dose: 220 mg Documented by: Discontinued Medications Dexamethasone (Dexamethasone 4 Mg/Ml 5 Ml Mdv) 6 mg IV ONETIME ONE Stop: 10/14/20 21:54 Last Admin: 10/14/20 22:14 Dose: 6 mg Documented by: Lactated Ringer's (Ringers, Lactated) 1,000 mls @ 75 mls/hr IV ASDIRECTED [facility] Last Admin: 10/17/20 19:50 Dose: 75 mls/hr Documented by: Remdesivir 200 mg/ Sodium (Chloride) 250 mls @ 250 mls/hr IV ONETIME ONE Stop: 10/14/20 21:54 Last Admin: 10/14/20 22:14 Dose: 250 mls/hr Documented by: Remdesivir 100 mg/ Sodium (Chloride) 100 mls @ 100 mls/hr IV Q24H [facility] Stop: 10/18/20 21:59 Last Admin: 10/18/20 20:20 Dose: 100 mls/hr Documented by: Azithromycin 500 mg/ Sodium (Chloride) 250 mls @ 250 mls/hr IV Q24H [facility] Last Admin: 10/18/20 06:17 Dose: 250 mls/hr Documented by: <Silver Nelsonis - Last Filed: 10/24/20 08:47> Discharge Summary - Hospital Course HPI Initial Comments: The patient is a 50-year-old gentleman who had presented to the emergency department out of concern for fatigue, hypoxia and weakness. The patient reports that he has had symptoms of shortness of breath, decreased appetite and fatigue for at least the past week. The patient was tested positive for COVID- 19 in the emergency department. The patient has denied any fever at home. No loss of sense of smell or taste. He currently lives with his daughter. She has not been sick. He has no coworkers that are sick. The patient initially seen at walk-in clinic where they were unable with oxygen to get his saturations to 90%. The patient reports that he has had a cough that has been nonproductive. He has denied any pain. The patient denies any tobacco use. Diagnosis: Stroke: No - Discharge Data Discharge Date: 10/22/20 (Admission date: 10/14/2020) - Referral to Home Health Primary Care Physician: Sabino Pretty PA-C - Discharge Diagnosis/Problem(s) (1) Hypoxia SNOMED Code(s): 792934709 ICD Code: R09.02 - HYPOXEMIA Status: Acute Priority: High (2) Acute respiratory failure due to COVID-19 SNOMED Code(s): 694605839 ICD Code: U07.1 - COVID-19; J96.00 - ACUTE RESPIRATORY FAILURE, UNSP W HYPOXIA OR HYPERCAPNIA Status: Acute Priority: High (3) Pneumonia due to COVID-19 virus SNOMED Code(s): 388655965254109829 ICD Code: U07.1 - COVID-19; J12.82 - PNEUMONIA DUE TO CORONAVIRUS DISEASE 2019 Status: Acute Priority: High (4) Transaminitis SNOMED Code(s): 643534011, 801113144 ICD Code: R74.01 - ELEVATION OF LEVELS OF LIVER TRANSAMINASE LEVELS Status: Acute Priority: Medium - Patient Summary/Data Consults: Consultations 10/18/20 12:28 Consult to Respiratory Therapy [Respiratory Care Assess and Treatment] [CONS] Routine Labs Pending at D/C: None Recommended Follow-up Testing/Procedures: Follow-up with primary care provider within 7 to 10 days of discharge, sooner if needed. -Review patient's need for continued oxygen. -Recommend repeat CBC, CMP, and magnesium at this visit. -Consider repeat chest x-ray. Hospital Course: This is a 50-year-old male who was admitted to the hospital late 10/14/2020 due to Covid pneumonia. He was placed in isolation. He reports symptoms began around 10/08/2020. He completed 5 days of remdesivir with the standard 200 mg initial IV dosing followed by 100 mg for 4 days. He also completed 5 days of 500 mg p.o. azithromycin and 9 days of 6 mg dexamethasone. He was utilizing in centive spirometry and Acapella and was proning frequently. Throughout his stay his D-dimer has been within normal range. He was receiving 40 mg subcutaneous Lovenox and 81 mg aspirin. He was initially given IV fluids and this did stop after he was noted to have a weight gain.. Oxygen saturation goal was 88 to 95%. He was noted to have mild transaminitis on admission but this did trend downward and was near normal prior to discharge. His CRP has been minimally elevated. He did have a mild leukocytosis which began after steroid administration and has remained stable. At his worst he was requiring 60 L of oxygen with an FiO2 of 85%. His electrolytes have remained stable. He was started on p.o. zinc and vitamin D supplementation. Baseline vitamin D was 42.9. He was ambulating around the room prior to discharge and did state that he was feeling quite good. He will be discharged on home oxygen. He was instructed to continue to utilize incentive spirometry and Acapella for 1 to 2 weeks or until symptoms resolve. He will be discharged on 81 mg daily aspirin, 220 mg daily zinc supplementation, and 1000 units daily vitamin D. He was instructed to continue these for 30 days and then reassess with his primary care provider if any of this is needed to continue. No dexamethasone will be prescribed at discharge. He was instructed to continue isolation for 20 days from symptom onset. He was instructed that he will likely be contacted by a agricultural equipment design engineer from the [facility]. He was instructed to follow-up with his primary care provider within 7 to 10 days of discharge, sooner if needed. Recommend repeat CBC, CMP, and magnesium at that visit. Consider repeat chest x-ray if indicated. Patient instructed to return the emergency room or contact primary care provider if symptoms return or worsen. Discharged home today. - Patient Instructions Diet: Usual Diet as Tolerated Activity: As Tolerated Driving: Do Not Drive (Until feeling better ) Showering/Bathing: May Shower Notify Provider of: Fever, Increased Pain, Nausea and/or Vomiting Other/Special Instructions: Follow-up with primary care provider within 7 to 10 days of discharge, sooner if needed. Continue to utilize your incentive spirom eter (clear/blue device you inhale through) and Acapella (green tube you blow through) for 1 to 2 weeks or until symptoms resolve. Recommend you continue to isolate/quarantine for 20 days from your initial symptom onset. You will likely be contacted by a special education case manager from the [facility]. Follow their directions. You completed your steroid and antibiotic treatment while here. You will be prescribed aspirin, zinc, and vitamin D supplementation at discharge. Some studies have shown a benefit from these medications for people with Covid19. You may discuss with your primary care provider if these are needed in the future. Continue to prone (lay on your belly) whenever possible, especially when sleeping. Wear your oxygen as directed. Should symptoms return or worsen contact your primary care provider return the emergency room. - Discharge Plan *PRESCRIPTION DRUG MONITORING PROGRAM REVIEWED*: No *COPY OF PRESCRIPTION DRUG MONITORING REPORT IN PATIENT WALT: No Oxygen Therapy Mode: Nasal Cannula Oxygen Flow Rate (L/min): 2 - Discharge Summary/Plan Comment DC Time >30 min.: Yes (45 mins ) - Review of Systems Systems Review Comment: See ROS from Dr. Mcwilliams' from 10/22/2020 - Patient Data Vitals - Most Recent: Last Vital Signs Temp 98.1 F 10/21/20 11:30 Pulse 81 10/21/20 11:30 Resp 18 10/21/20 11:30 BP 130/68 10/21/20 11:30 Pulse Ox 91 L 10/21/20 11:30 Weight - Most Recent: 266 lb 14.4 oz I&O - Last 24 hours: Intake & Output 10/20/20 10/21/20 10/21/20 22:59 06:59 14:59 Intake Total 800 800 480 Output Total 1000 1900 Balance -200 -1100 480 DORIS Results - Last 24 hrs: Microbiology 10/14/20 20:38 Aerobic Blood Culture - Preliminary Blood - Venous NO GROWTH AFTER 6 DAYS Anaerobic Blood Culture - Preliminary NO GROWTH AFTER 6 DAYS 10/14/20 20:48 Aerobic Blood Culture - Preliminary Blood - Venous - Lab Draw NO GROWTH AFTER 6 DAYS Anaerobic Blood Culture - Preliminary NO GROWTH AFTER 6 DAYS Med Orders - Current: Current Medications Acetaminophen (Acetaminophen 325 Mg Tab) 650 mg PO Q4H PRN PRN Reason: Pain (Mild 1-3)/fever Aspirin (Aspirin 81 Mg Tab.Chew) 81 mg PO DAILY [facility] Last Admin: 10/21/20 09:06 Dose: 81 mg Documented by: Cholecalciferol (Cholecalciferol (Vitamin D3) 5,000 Unit Cap) 5,000 unit PO DAILY [facility] Last Admin: 10/21/20 09:05 Dose: 5,000 unit Documented by: Dexamethasone (Dexamethasone 4 Mg Tab) 6 mg PO DAILY [facility] Stop: 10/24/20 09:01 Last Admin: 10/21/20 09:06 Dose: 6 mg Documented by: Enoxaparin Sodium (Enoxaparin 40 Mg/0.4 Ml Syringe) 40 mg SUBCUT DAILY [facility] Last Admin: 10/21/20 09:08 Dose: 40 mg Documented by: Famotidine (Famotidine 20 Mg Tab) 20 mg PO BID [facility] Last Admin: 10/21/20 09:07 Dose: 20 mg Documented by: Ondansetron HCl (Ondansetron 4 Mg Tab.Dis) 4 mg PO Q4H PRN PRN Reason: nausea, able to take PO Oxycodone HCl (Oxycodone 5 Mg Tab) 5 mg PO Q4H PRN PRN Reason: Pain (moderate 4-6) Temazepam (Temazepam 7.5 Mg Cap) 7.5 mg PO BEDTIME PRN PRN Reason: Sleep Zinc Sulfate (Zinc Sulfate 220 Mg Cap) 220 mg PO DAILY [facility] Last Admin: 10/21/20 09:06 Dose: 220 mg Documented by: Discontinued Medications Dexamethasone (Dexamethasone 4 Mg/Ml 5 Ml Mdv) 6 mg IV ONETIME ONE Stop: 10/14/20 21:54 Last Admin: 10/14/20 22:14 Dose: 6 mg Documented by: Lactated Ringer's (Ringers, Lactated) 1,000 mls @ 75 mls/hr IV ASDIRECTED [facility] Last Admin: 10/17/20 19:50 Dose: 75 mls/hr Documented by: Remdesivir 200 mg/ Sodium (Chloride) 250 mls @ 250 mls/hr IV ONETIME ONE Stop: 10/14/20 21:54 Last Admin: 10/14/20 22:14 Dose: 250 mls/hr Documented by: Remdesivir 100 mg/ Sodium (Chloride) 100 mls @ 100 mls/hr IV Q24H [facility] Stop: 10/18/20 21:59 Last Admin: 10/18/20 20:20 Dose: 100 mls/hr Documented by: Azithromycin 500 mg/ Sodium (Chloride) 250 mls @ 250 mls/hr IV Q24H [facility] Last Admin: 10/18/20 06:17 Dose: 250 mls/hr Documented by: - Exam Physical Findings Comments:: See exam from Dr. Mcwilliams' from 10/22/2020
[2020-10-22] MEDS: Dexamethasone 4 MG Tab PO SCH (08:21)
[2020-10-22] MEDS: Enoxaparin 40 MG/0.4 ML Syringe SUBCUT SCH (08:25)
[2020-10-22] MEDS: Famotidine 20 MG Tab PO SCH (08:27)
[2020-10-22] MEDS: Aspirin 81 MG Tab.Chew PO SCH (08:27)
[2020-10-22] MEDS: Cholecalciferol (Vitamin D3) 5,000 UNIT Cap PO SCH (08:27)
[2020-10-22] MEDS: Zinc Sulfate 220 MG Cap PO SCH (08:28)
--- NOTE | 2020-10-22 08:56 | PCM.PN ---
- General Info Date of Service: 10/22/20 Admission Dx/Problem (Free Text): Admission Diagnosis/Problem Admission Diagnosis/Problem Hypoxia, COVID-19 PNA Subjective Update: Patient seen and examined at bedside prior to discharge. Patient had to stay an extra night in order to finalize plans for home oxygen and delivery. No acute events overnight. Patient still requiring 2 to 3 L supplemental oxygen to maintain O2 saturation greater than 92%. Patient does not offer any complaints prior to discharge. - Patient Data Vitals - Most Recent: Last Vital Signs Temp 98.1 F 10/22/20 07:50 Pulse 67 10/22/20 07:50 Resp 20 10/22/20 07:50 BP 109/77 10/22/20 07:50 Pulse Ox 95 10/22/20 07:50 Weight - Most Recent: 264 lb 8 oz I&O - Last 24 Hours: Intake & Output 10/21/20 10/22/20 10/22/20 22:59 06:59 14:59 Intake Total 1000 950 Output Total 1500 1750 Balance -500 -800 Lab Results Last 24 Hours: Laboratory Results - last 24 hr 10/22/20 10/22/20 10/22/20 Range/Units 05:27 05:27 05:27 WBC 6.62 (4.23-9.07) K/mm3 RBC 4.64 (4.63-6.08) M/mm3 Hgb 13.7 (13.7-17.5) gm/dl Hct 41.4 (40.1-51.0) % MCV 89.2 (79.0-92.2) fl MCH 29.5 (25.7-32.2) pg MCHC 33.1 (32.2-35.5) g/dl RDW Std Deviation 48.2 H (35.1-43.9) fL Plt Count 336 (163-337) K/mm3 MPV 10.6 (9.4-12.3) fl Neut % (Auto) 66.8 (34.0-67.9) % Lymph % (Auto) 17.4 L (21.8-53.1) % Eddy % (Auto) 12.8 H (5.3-12.2) % Eos % (Auto) 2.3 (0.8-7.0) Baso % (Auto) 0.2 (0.1-1.2) % Neut # (Auto) 4.43 (1.78-5.38) K/mm3 Lymph # (Auto) 1.15 L (1.32-3.57) K/mm3 Eddy # (Auto) 0.85 H (0.30-0.82) K/mm3 Eos # (Auto) 0.15 (0.04-0.54) K/mm3 Baso # (Auto) 0.01 (0.01-0.08) K/mm3 Manual Slide Review Normal smear D-Dimer, Quantitative 0.82 H (0.19-0.50) mg/L Sodium 141 (136-145) mEq/L Potassium 4.2 (3.5-5.1) mEq/L Chloride 107 (98-107) mEq/L Carbon Dioxide 28 (21-32) mEq/L Anion Gap 10.2 (5-15) BUN 17 (7-18) mg/dL Creatinine 1.0 (0.7-1.3) mg/dL Est Cr Clr Drug Dosing 99.16 mL/min Estimated GFR (MDRD) > 60 (>60) mL/min BUN/Creatinine Ratio 17.0 (14-18) Glucose 91 (70-99) mg/dL Calcium 8.2 L (8.5-10.1) mg/dL Total Bilirubin 0.5 (0.2-1.0) mg/dL AST 29 (15-37) U/L ALT 70 H (16-63) U/L Alkaline Phosphatase 44 L (46-116) U/L C-Reactive Protein 3.8 H* (<1.0) mg/dL Total Protein 6.1 L (6.4-8.2) g/dl Albumin 2.1 L (3.4-5.0) g/dl Globulin 4.0 gm/dL Albumin/Globulin Ratio 0.5 L (1-2) Bob Results Last 24 Hours: Microbiology 10/14/20 20:38 Aerobic Blood Culture - Final Blood - Venous NO GROWTH AFTER 7 DAYS Anaerobic Blood Culture - Final NO GROWTH AFTER 7 DAYS 10/14/20 20:48 Aerobic Blood Culture - Final Blood - Venous - Lab Draw NO GROWTH AFTER 7 DAYS Anaerobic Blood Culture - Final NO GROWTH AFTER 7 DAYS Med Orders - Current: Current Medications Acetaminophen (Acetaminophen 325 Mg Tab) 650 mg PO Q4H PRN PRN Reason: Pain (Mild 1-3)/fever Aspirin (Aspirin 81 Mg Tab.Chew) 81 mg PO DAILY [facility] Last Admin: 10/22/20 08:27 Dose: 81 mg Documented by: Cholecalciferol (Cholecalciferol (Vitamin D3) 5,000 Unit Cap) 5,000 unit PO DAILY [facility] Last Admin: 10/22/20 08:27 Dose: 5,000 unit Documented by: Dexamethasone (Dexamethasone 4 Mg Tab) 6 mg PO DAILY [facility] Stop: 10/24/20 09:01 Last Admin: 10/22/20 08:21 Dose: 6 mg Documented by: Enoxaparin Sodium (Enoxaparin 40 Mg/0.4 Ml Syringe) 40 mg SUBCUT DAILY [facility] Last Admin: 10/22/20 08:25 Dose: 40 mg Documented by: Famotidine (Famotidine 20 Mg Tab) 20 mg PO BID [facility] Last Admin: 10/22/20 08:27 Dose: 20 mg Documented by: Ondansetron HCl (Ondansetron 4 Mg Tab.Dis) 4 mg PO Q4H PRN PRN Reason: nausea, able to take PO Oxycodone HCl (Oxycodone 5 Mg Tab) 5 mg PO Q4H PRN PRN Reason: Pain (moderate 4-6) Temazepam (Temazepam 7.5 Mg Cap) 7.5 mg PO BEDTIME PRN PRN Reason: Sleep Zinc Sulfate (Zinc Sulfate 220 Mg Cap) 220 mg PO DAILY [facility] Last Admin: 10/22/20 08:28 Dose: 220 mg Documented by: Discontinued Medications Dexamethasone (Dexamethasone 4 Mg/Ml 5 Ml Mdv) 6 mg IV ONETIME ONE Stop: 10/14/20 21:54 Last Admin: 10/14/20 22:14 Dose: 6 mg Documented by: Lactated Ringer's (Ringers, Lactated) 1,000 mls @ 75 mls/hr IV ASDIRECTED [facility] Last Admin: 10/17/20 19:50 Dose: 75 mls/hr Documented by: Remdesivir 200 mg/ Sodium (Chloride) 250 mls @ 250 mls/hr IV ONETIME ONE Stop: 10/14/20 21:54 Last Admin: 10/14/20 22:14 Dose: 250 mls/hr Documented by: Remdesivir 100 mg/ Sodium (Chloride) 100 mls @ 100 mls/hr IV Q24H [facility] Stop: 10/18/20 21:59 Last Admin: 10/18/20 20:20 Dose: 100 mls/hr Documented by: Azithromycin 500 mg/ Sodium (Chloride) 250 mls @ 250 mls/hr IV Q24H [facility] Last Admin: 10/18/20 06:17 Dose: 250 mls/hr Documented by: - Exam General: Alert Lungs: Normal Respiratory Effort, Decreased Breath Sounds Cardiovascular: Regular Rate GI/Abdominal Exam: Normal Bowel Sounds, Soft, Non-Tender Extremities: Normal Inspection, No Pedal Edema Skin: Warm, Dry Psy/Mental Status: Normal Mood - Patient Data Lab Results Last 24 hrs: Laboratory Results - last 24 hr 10/22/20 10/22/20 10/22/20 Range/Units 05:27 05:27 05:27 WBC 6.62 (4.23-9.07) K/mm3 RBC 4.64 (4.63-6.08) M/mm3 Hgb 13.7 (13.7-17.5) gm/dl Hct 41.4 (40.1-51.0) % MCV 89.2 (79.0-92.2) fl MCH 29.5 (25.7-32.2) pg MCHC 33.1 (32.2-35.5) g/dl RDW Std Deviation 48.2 H (35.1-43.9) fL Plt Count 336 (163-337) K/mm3 MPV 10.6 (9.4-12.3) fl Neut % (Auto) 66.8 (34.0-67.9) % Lymph % (Auto) 17.4 L (21.8-53.1) % Eddy % (Auto) 12.8 H (5.3-12.2) % Eos % (Auto) 2.3 (0.8-7.0) Baso % (Auto) 0.2 (0.1-1.2) % Neut # (Auto) 4.43 (1.78-5.38) K/mm3 Lymph # (Auto) 1.15 L (1.32-3.57) K/mm3 Eddy # (Auto) 0.85 H (0.30-0.82) K/mm3 Eos # (Auto) 0.15 (0.04-0.54) K/mm3 Baso # (Auto) 0.01 (0.01-0.08) K/mm3 Manual Slide Review Normal smear D-Dimer, Quantitative 0.82 H (0.19-0.50) mg/L Sodium 141 (136-145) mEq/L Potassium 4.2 (3.5-5.1) mEq/L Chloride 107 (98-107) mEq/L Carbon Dioxide 28 (21-32) mEq/L Anion Gap 10.2 (5-15) BUN 17 (7-18) mg/dL Creatinine 1.0 (0.7-1.3) mg/dL Est Cr Clr Drug Dosing 99.16 mL/min Estimated GFR (MDRD) > 60 (>60) mL/min BUN/Creatinine Ratio 17.0 (14-18) Glucose 91 (70-99) mg/dL Calcium 8.2 L (8.5-10.1) mg/dL Total Bilirubin 0.5 (0.2-1.0) mg/dL AST 29 (15-37) U/L ALT 70 H (16-63) U/L Alkaline Phosphatase 44 L (46-116) U/L C-Reactive Protein 3.8 H* (<1.0) mg/dL Total Protein 6.1 L (6.4-8.2) g/dl Albumin 2.1 L (3.4-5.0) g/dl Globulin 4.0 gm/dL Albumin/Globulin Ratio 0.5 L (1-2) Result Diagrams: 10/22/20 05:27 10/22/20 05:27 Bob Results Last 24 hrs: Microbiology 10/14/20 20:38 Aerobic Blood Culture - Final Blood - Venous NO GROWTH AFTER 7 DAYS Anaerobic Blood Culture - Final NO GROWTH AFTER 7 DAYS 10/14/20 20:48 Aerobic Blood Culture - Final Blood - Venous - Lab Draw NO GROWTH AFTER 7 DAYS Anaerobic Blood Culture - Final NO GROWTH AFTER 7 DAYS Sepsis Event Note - Evaluation Sepsis Screening Result: No Definite Risk - Focused Exam Vital Signs: Vital Signs Temp Pulse Resp BP Pulse Ox Pulse Ox 10/22/20 07:50 98.1 F 67 20 109/77 95 10/22/20 06:05 93 L 10/22/20 03:27 98.1 F 69 14 117/67 92 L 10/21/20 23:56 92 L 10/21/20 21:05 98.4 F 78 14 115/80 93 L - Problem List Review Problem List Initiated/Reviewed/Updated: Yes - Plan Plan:: Acute COVID-19 pneumonitis. Acute hypoxic respiratory failure. Patient cleared for discharge as respiratory therapy has arranged for home oxygen. Please see discharge summary for hospital course, medication reconciliation, and discharge orders Case personally preceptor with the physician's assistant foreman yesterday. Agree with yesterday's evaluation, assessment and home discharge plan.
== END 2020-10-22 11:05 | disposition home or self-care (01) | DRG 137 ==
LOC: JD.ED 19:46 → JD.MS 22:13
PROVIDERS: ADMIT Internal Medicine; ATTEND Internal Medicine
PROC: 8E0ZXY6 Isolation (ICD-10-PCS; principal; 2020-10-14)
PROC: XW033E5 Introduction of Remdesivir Anti-infective into Peripheral Vein, Percutaneous Approach, New Technology Group 5 (ICD-10-PCS; 2020-10-14)
PROC: 5A0945A Assistance with Respiratory Ventilation, 24-96 Consecutive Hours, High Flow/Velocity Cannula (ICD-10-PCS; 2020-10-14)
DX: U07.1 COVID-19 (principal); J96.01 Acute respiratory failure with hypoxia; J12.82 Pneumonia due to coronavirus disease 2019; R74.01 Elevation of levels of liver transaminase levels; Z79.82 Long term (current) use of aspirin; Z79.899 Other long term (current) drug therapy
CPT/HCPCS: 0240U; 36415; 71045; 71045-26; 80048; 80053; 80076; 82248; 82306; 82728; 83605; 83735; 84484; 85007; 85025; 85027; 85379; 86140; 87040; 93005; 93010; 94667; 94668; 94762; 99222; 99232; 99233; 99239; 99284; 99285-25; A9270-GY; J0456; J1100; J1650; J7050; J7120; J8540